=== PATIENT | female | born 1945 | race Caucasian/White ===

== ENCOUNTER 2024-01-19 12:51 | Outpatient (CLI) | payer OTHER, SELFPAY | END 2024-01-19 12:52 | disposition home or self-care (01) | LOC: AMB 01-25 06:47 | PROVIDERS: Visit Provider Emergency Medicine Emergency Medical Services | DX: R19.7 Diarrhea, unspecified (principal); R53.1 Weakness | CPT/HCPCS: A0425; A0427 ==

== ENCOUNTER 2024-01-19 13:15 | Inpatient (IN) | payer OTHER, SELFPAY ==
[2024-01-19] VITALS (8 sets, daily range): BP systolic 148–224; BP diastolic 92–120; PULSE 79–93; RESP 16–20; TEMP 36.4–36.9; O2SAT 93–99; BMI 28.3; BMI 27.1
--- NOTE | 2024-01-19 13:49 | ED_ITS ---
HPI - Weakness General Chief complaint: Weakness Stated complaint: Weakness Time Seen by Provider: 01/19/24 13:25 History of Present Illness HPI Narrative: This 78-year-old female comes in by ambulance because of generalized weakness that came on this morning. She has history of intermittent constipation and diarrhea and this has occurred recently. She did not have bowel movement for a couple days until last evening. Then this morning she had 6 or 7 episodes of diarrhea. She states that she drinks lots of water. She arrives here with normal vital signs except her blood pressure is elevated. She does not report any unilateral symptoms and has not had any speech change. She does report a history of a stroke that was a small finding on a MRI results. She does not have any significant residual symptoms from that event. She is not taking any anticoagulants. She does not have any pain and reports no fever or other sign of infection. She did need help ambulating and so she came in by ambulance. Ambulance report that she needed assistance to transfer. Normally she ambulates without assistance at home. Related Data Home Medications Medication Instructions Recorded Confirmed No Known Home Medications 01/19/24 01/19/24 Allergies Allergy/AdvReac Type Severity Reaction Status Date / Time chocolate Allergy Mild Diarrhea Verified 01/19/24 13:36 corn AdvReac Mild Diarrhea Verified 01/19/24 13:36 Review of Systems Status of ROS: Reports: 10 or more systems reviewed and unremarkable except as noted in History and below Narrative: Constitutional: No fevers, no weight gain or loss. Eyes: No discharge. No vision changes. HENT: No congestion, no sore throat, no ear pain. Cardiovascular: No chest pain, no palpitations. Respiratory: No shortness of breath, no wheezes, no cough. Gastrointestinal: No abdominal pain, no vomiting, no diarrhea. Genitourinary: No dysuria, no hematuria. Musculoskeletal: Normal range of motion. Skin: No rashes, no pruritis. Neurological: No dizziness, sensory change, speech change. Generalized weakness without unilateral symptoms. Endo/Heme/Allergies: No bruising or bleeding. No polydipsia. Pysch: no suicidality, no anxiety, no insomnia. All other systems reviewed and are negative. Exam Narrative: Exam Narrative: Constitutional: Well-developed, well-nourished, no acute distress. HEENT: Normocephalic, atraumatic. Neck: Normal range of motion. Nontender. Supple. Heart: Regular. No murmurs. Normal rate. Intact distal pulses. Lungs: Clear to auscultation. No chest discomfort. No wheezes, rhonchi, or rales. Abdomen: Normal bowel sounds. Nontender. No rebound tenderness. Genitalia: Deferred. Back: No midline tenderness. Normal range of motion. Extremities: Normal range of motion. No injury. Skin: Intact. No rash. Warm. No erythema or pallor. Neurologic: No altered sensation. No weakness. Alert and oriented. No facial asymmetry. Tongue is midline. [id number] is normal. No pronator drift. [employer] strength is equal bilaterally. Able to raise each leg from the bed. Psychiatric: No suicidality. No anxiety or depression. No insomnia. Nursing notes and vitals signs are reviewed. Const: Vital Signs, click to edit/add: Vital Signs - 24 hr 01/19/24 13:28 01/19/24 19:30 Temperature 98.5 F 97.9 F Pulse Rate [Pulse Oximeter] 93 91 Respiratory Rate 16 18 Blood Pressure [Ri t Upper Arm] 224/110 H 205/120 H Pulse Oximetry 98 94 Oxygen Delivery Me thod Room Air Room Air Course Vital Signs Vital signs: Initial Vital Signs Temperature 98.5 F 01/19/24 13:28 Temperature Source Temporal Artery Scan 01/19/24 13:28 Pulse Rate 93 01/19/24 13:28 Pulse Rhythm Regular 01/19/24 13:28 Respiratory Rate 16 01/19/24 13:28 Blood Pressure 224/110 H 01/19/24 13:28 Blood Pressure Mean 148 H 01/19/24 13:28 Blood Pressure Position Sitting 01/19/24 13:28 Pulse Oximetry 98 01/19/24 13:28 Oxygen Delivery Method Room Air 01/19/24 13:28 Vital Signs Temperature 98.5 F 01/19/24 13:28 Pulse Rate 93 01/19/24 13:28 Respiratory Rate 16 01/19/24 13:28 Blood Pressure 224/110 H 01/19/24 13:28 Pulse Oximetry 98 01/19/24 13:28 Oxygen Delivery Method Room Air 01/19/24 13:28 Temperature 97.9 F 01/19/24 19:30 Pulse Rate 91 01/19/24 19:30 Respiratory Rate 18 01/19/24 19:30 Blood Pressure 205/120 H 01/19/24 19:30 Pulse Oximetry 94 01/19/24 19:30 Oxygen Delivery Method Room Air 01/19/24 19:30 Medications Administered Medications: Discontinued Medications Generic Name Dose Route Start Last Admin Trade Name Elizabet PRN Reason Stop Dose Admin Aspirin 324 mg 01/19/24 19:19 01/19/24 19:24 Aspirin 81 Mg Tab.Chew PO 01/19/24 19:20 324 mg ONCE ONE Administration Clopidogrel Bisulfate 300 mg 01/19/24 19:19 01/19/24 19:34 Clopidogrel 300 Mg Tablet PO 01/19/24 19:20 300 mg ONCE ONE Administration Lorazepam 0.5 mg 01/19/24 17:16 01/19/24 17:21 Lorazepam 2 Mg/Ml Inj IV 01/19/24 17:17 0.5 mg ONCE ONE Administration Lorazepam 0.5 mg 01/19/24 18:58 01/19/24 19:26 Lorazepam 2 Mg/Ml Inj IV 01/19/24 18:59 0.5 mg ONCE ONE Administration MDM - Weakness MDM Narrative Medical decision making narrative: This patient comes in reporting generalized weakness but at times states that she feels like her left arm is functioning differently. Her neurologic exam is completely normal. She however was not able to get up and ambulate normally. I recommended MRI but the patient stated that she had 1 previously and it caused spasms in her hand for a few hours afterwards. She states that she did not want to have an MRI. Her symptoms started at 6:00 a.m. this morning which was about 7 hours prior to arrival here. I did consult with neurologist on-call, Dr. Alexandra, who recommended MRI. I explained the circumstances that the patient stated about MRI. The neurologist did do a tele stroke interview of the patient and afterwards she was agreeable to have an MRI done as this is the only way to establish a reliable diagnosis. She did begin to have some spasms in her hand prior to the MRI and received a half a mg of Ativan intravenously. Clearly this was an anxiety reaction. After the MRI was completed she continued to have some myoclonic jerks and did receive another dose of half a mg of Ativan. MRI results returned with evidence of a small infarct in the right brain causing some left-sided symptoms. IA spoke again with the neurologist international affairs vice president regarding this who recommended admission into the hospital. She will be followed by the neurologist tomorrow. The patient did receive a loading dose of Plavix 300 mg orally and aspirin 324 mg. The Plavix can be continued at 75 mg daily. She may need some attention to her blood pressure. I spoke with the hospitalist international affairs vice president, Dr. Manuel, regarding these matters who will arrange for admission ongoing management. Lab Data Labs: Lab Results 01/19/24 01/19/24 01/19/24 Range/Units 13:49 14:00 14:22 WBC 4.05 L (4.50-11.00) K/uL RBC 5.39 H (4.00-5.20) m/uL Hgb 14.5 (12.0-16.0) gm/dL Hct 43.7 (33.0-51.0) % MCV 81 (80-100) fL MCH 27 (26-34) pg MCHC 33 (32-36) gm/dL RDW Coeff of Mark 13.8 (11.5-15.5) % Plt Count 176 (140-440) K/uL Neut % (Auto) 62.0 (42.0-72.0) % Lymph % (Auto) 27.4 (20-44) % [place] % (Auto) 9.9 (0.0-11.0) % Eos % (Auto) 0.0 (0.0-7.0) % Baso % (Auto) 0.2 (0.0-3.0) % Neut # (Auto) 2.50 (1.7-7.0) K/uL Lymph # (Auto) 1.10 (0.90-2.90) K/uL [place] # (Auto) 0.40 (0.00-0.90) K/UL Eos # (Auto) 0.00 (0.00-0.50) K/uL Baso # (Auto) 0.00 (0.00-0.30) K/uL Abs Immat Gran (auto) 0.00 (0.00-0.30) K/uL Imm/Tot Granulo (auto) 0.5 % Sodium 142 (135-149) mmol/L Potassium 3.8 (3.6-5.1) mmol/L Chloride 109 (96-114) mmol/L Carbon Dioxide 25 (20-32) mmol/L Anion Gap 8 (7-15) mEq/L BUN 11 (7-30) mg/dL Creatinine 0.6 (0.5-1.5) mg/dL Estimated Creat Clear 34.42 Estimated GFR 91 ml/min Glucose 117 H (60-115) mg/dL Calcium 9.1 (8.4-10.6) mg/dL Urine Color Yellow (Yellow) Urine Appearance Clear (Clear) Urine pH 7.5 (5.0-8.5) Ur Specific [place] 1.020 (1.000-1.030) Urine Protein 1+ A (Negative) Urine Glucose (UA) Negative (Negative) Urine Ketones Negative (Negative) Urine Blood Negative (Negative) Urine Nitrite Negative (Negative) Urine Bilirubin Negative (Negative) Urine Urobilinogen 0.2 (0.2-1.0) Ur Leukocyte Esterase Negative (Negative) Urine RBC 0-2 (0-2) Urine WBC 0-2 (0-5) Ur Squamous Epith Cells None (None-Few) Urine Bacteria None (None) POC Troponin I 0.02 (0.01-0.04) ng/ml Imaging Data CT scan - abdomen: Radiologist's impression: Acute uncomplicated left lower quadrant diverticulitis. MRI - head: Radiologist's impression: MRI Head: 1. Small acute infarct involving the right powell radiata/posterior limb internal capsule. 2. No evidence of hemorrhagic transformation. 3. Mild-moderate chronic microangiopathic changes and small chronic lacunar infarcts at the left posterior limb internal capsule. MRA Head: 1. No convincing evidence of intracranial proximal arterial occlusion or critical stenosis, significant aneurysm or vascular malformation. MRA Neck: 1. No convincing evidence of hemodynamically significant stenosis in the neck, given motion artifact limitations. ECG Data Attestation: I personally reviewed and interpreted this ECG as follows: Interpretation: Normal sinus rhythm. Rate is 92 beats per minute. There are no ST or T-wave abnormalities. Discharge Plan Discharge Prescriptions: No Action No Known Home Medications
[2024-01-19 14:12] LABS: Appearance Urine Clear (Clear); Bilirubin Urine Negative (Negative); Blood Urine Negative (Negative); Color Urine Yellow (Yellow); Glucose Urine Negative (Negative); Ketones Urine Negative (Negative); Leukocyte Esterase Urine Negative (Negative); Nitrite Urine Negative (Negative); Protein Urine 1+ (Negative); Urobilinogen Urine 0.2 (0.2-1.0); pH Urine 7.5 (5.0-8.5)
[2024-01-19 14:24] LABS: RBC Urine 0-2 (0-2); WBC Urine 0-2 (0-5)
[2024-01-19 14:28] LABS: Basophils Percent Auto 0.2 % (0.0-3.0); Hematocrit 43.7 % (33.0-51.0); Hemoglobin* 14.5 gm/dL (12.0-16.0); Immature Granulocytes Pct Auto 0.5 %; Lymphocytes Percent Auto 27.4 % (20-44); Mean Corpuscular HGB Conc 33 gm/dL (32-36); Mean Corpuscular Hemoglobin 27 pg (26-34); Mean Corpuscular Volume 81 fL (80-100); Monocytes Percent Auto 9.9 % (0.0-11.0); Platelet Count* 176 K/uL (140-440); RDW Coefficient of Variation % 13.8 % (11.5-15.5); Red Blood Count 5.39 m/uL (4.00-5.20); White Blood Count* 4.05 K/uL (4.50-11.00)
[2024-01-19 14:30] LABS: Slide Review Reflex No
[2024-01-19 14:41] LABS: Chloride* 109 mmol/L (96-114); Potassium* 3.8 mmol/L (3.6-5.1); Sodium* 142 mmol/L (135-149)
[2024-01-19 14:44] LABS: Anion Gap 8 mEq/L (7-15); Blood Urea Nitrogen* 11 mg/dL (7-30); Carbon Dioxide* 25 mmol/L (20-32); Creatinine* 0.6 mg/dL (0.5-1.5); Est. Creatinine Clearance* 34.42; Estimated Glomerular Filt Rate 91 ml/min
[2024-01-19 14:44] LABS: Troponin, Point-of-Care* 0.02 ng/ml (0.01-0.04)
[2024-01-19 14:45] LABS: Calcium* 9.1 mg/dL (8.4-10.6); Glucose* 117 mg/dL (60-115)
--- NOTE | 2024-01-19 16:48 | MR_ITS ---
Patient: GELY COLEMAN Facility:?[facility] Patient ID:?[id number] Site Patient ID:?[id number] Site :?1945 Study:?MRI-Head W/ and W/O Cont 20 CC DOATERM-01/19/2024 6:36:07 PM Ordering Physician:INDIRA Final Report: Indication: Weakness Technique: MRI Head: performed before and after IV contrast. MRA Head: performed without IV contrast. MRA Neck: performed before and after IV contrast. Gadolinium-based contrast agent: 20 mL Dotarem IV contrast. Comparison: MRI brain 05/03/2021. Findings: MRI Head: Small area of acute ischemia at the right powell radiata extending into the posterior limb internal capsule. No evidence of hemorrhagic transformation. No midline shift, hydrocephalus or herniation. Mild-moderate chronic microangiopathy changes throughout the supratentorial white matter. Chronic lacunar infarcts at the posterior limb left internal capsule with associated wallerian degeneration signal changes. No suspicious intracranial enhancement. Major expected intracranial flow voids are preserved. No paranasal sinus air- fluid level or mastoid effusion. Bilateral lens implants. MRA Head: Artifact degrades image quality. The intracranial segments of the internal carotid arteries and basilar artery appear widely patent. The anterior, middle and posterior cerebral arteries and proximal branches are unremarkable. No evidence of an aneurysm over 3 mm. No high-flow AV malformation. No high-grade stenosis. MRA Neck: There is artifact from patient motion, degrading image quality. The bilateral common carotid arteries, internal and external carotid arteries appear widely patent. No stenosis near the common carotid bifurcations. Bilateral vertebral arteries also appear widely patent. Impression: MRI Head: 1. Small acute infarct involving the right powell radiata/posterior limb internal capsule. 2. No evidence of hemorrhagic transformation. 3. Mild-moderate chronic microangiopathic changes and small chronic lacunar infarcts at the left posterior limb internal capsule. MRA Head: 1. No convincing evidence of intracranial proximal arterial occlusion or critical stenosis, significant aneurysm or vascular malformation. MRA Neck: 1. No convincing evidence of hemodynamically significant stenosis in the neck, given motion artifact limitations. Dictated by Hanna Brock MD @ 01/19/2024 7:07:52 PM ----- ADDENDUM ----- Exam reports were faxed, with confirmation of receipt by Dr. Olivares at 19:41 on 01/19/2024. Dictated by Hanna Brock MD @ Jan 19 2024 9:35PM Signed by:?Hanna Brock MD @01/19/2024 7:07:52 PM (Electronic Signature)
--- NOTE | 2024-01-19 16:59 | MR_ITS ---
Patient: GELY COLEMAN Facility:?[facility] Patient ID:?[id number] Site Patient ID:?[id number] Site :?[id number] Study:?MRI-Head MRA W/O-01/19/2024 6:36:52 PM Ordering Physician:INDIRA Final Report: Indication: Weakness Technique: MRI Head: performed before and after IV contrast. MRA Head: performed without IV contrast. MRA Neck: performed before and after IV contrast. Gadolinium-based contrast agent: 20 mL Dotarem IV contrast. Comparison: MRI brain 05/03/2021. Findings: MRI Head: Small area of acute ischemia at the right powell radiata extending into the posterior limb internal capsule. No evidence of hemorrhagic transformation. No midline shift, hydrocephalus or herniation. Mild-moderate chronic microangiopathy changes throughout the supratentorial white matter. Chronic lacunar infarcts at the posterior limb left internal capsule with associated wallerian degeneration signal changes. No suspicious intracranial enhancement. Major expected intracranial flow voids are preserved. No paranasal sinus air- fluid level or mastoid effusion. Bilateral lens implants. MRA Head: Artifact degrades image quality. The intracranial segments of the internal carotid arteries and basilar artery appear widely patent. The anterior, middle and posterior cerebral arteries and proximal branches are unremarkable. No evidence of an aneurysm over 3 mm. No high-flow AV malformation. No high-grade stenosis. MRA Neck: There is artifact from patient motion, degrading image quality. The bilateral common carotid arteries, internal and external carotid arteries appear widely patent. No stenosis near the common carotid bifurcations. Bilateral vertebral arteries also appear widely patent. Impression: MRI Head: 1. Small acute infarct involving the right powell radiata/posterior limb internal capsule. 2. No evidence of hemorrhagic transformation. 3. Mild-moderate chronic microangiopathic changes and small chronic lacunar infarcts at the left posterior limb internal capsule. MRA Head: 1. No convincing evidence of intracranial proximal arterial occlusion or critical stenosis, significant aneurysm or vascular malformation. MRA Neck: 1. No convincing evidence of hemodynamically significant stenosis in the neck, given motion artifact limitations. Dictated by Hanna Brock MD @ 01/19/2024 7:08:15 PM Signed by:?Hanna Brock MD @01/19/2024 7:08:15 PM (Electronic Signature)
--- NOTE | 2024-01-19 16:59 | MR_ITS ---
Patient: GELY COLEMAN Facility:?[facility] Patient ID:?[id number] Site Patient ID:?[id number] Site :?1945 Study:?MRI-Neck Angio W/ and W/O Cont 20 CC DOATERM-01/19/2024 6:37:37 PM Ordering Physician:INDIRA Final Report: Indication: Weakness Technique: MRI Head: performed before and after IV contrast. MRA Head: performed without IV contrast. MRA Neck: performed before and after IV contrast. Gadolinium-based contrast agent: 20 mL Dotarem IV contrast. Comparison: MRI brain 05/03/2021. Findings: MRI Head: Small area of acute ischemia at the right powell radiata extending into the posterior limb internal capsule. No evidence of hemorrhagic transformation. No midline shift, hydrocephalus or herniation. Mild-moderate chronic microangiopathy changes throughout the supratentorial white matter. Chronic lacunar infarcts at the posterior limb left internal capsule with associated wallerian degeneration signal changes. No suspicious intracranial enhancement. Major expected intracranial flow voids are preserved. No paranasal sinus air- fluid level or mastoid effusion. Bilateral lens implants. MRA Head: Artifact degrades image quality. The intracranial segments of the internal carotid arteries and basilar artery appear widely patent. The anterior, middle and posterior cerebral arteries and proximal branches are unremarkable. No evidence of an aneurysm over 3 mm. No high-flow AV malformation. No high-grade stenosis. MRA Neck: There is artifact from patient motion, degrading image quality. The bilateral common carotid arteries, internal and external carotid arteries appear widely patent. No stenosis near the common carotid bifurcations. Bilateral vertebral arteries also appear widely patent. Impression: MRI Head: 1. Small acute infarct involving the right powell radiata/posterior limb internal capsule. 2. No evidence of hemorrhagic transformation. 3. Mild-moderate chronic microangiopathic changes and small chronic lacunar infarcts at the left posterior limb internal capsule. MRA Head: 1. No convincing evidence of intracranial proximal arterial occlusion or critical stenosis, significant aneurysm or vascular malformation. MRA Neck: 1. No convincing evidence of hemodynamically significant stenosis in the neck, given motion artifact limitations. Dictated by Hanna Brock MD @ 01/19/2024 7:08:40 PM Signed by:?Hanna Brock MD @01/19/2024 7:08:40 PM (Electronic Signature)
[2024-01-19] MEDS: LORazepam 2 MG/ML inj 0.5 MG IV ×2 (17:21→19:26)
--- NOTE | 2024-01-19 17:21 | ED.NURSE ---
pt anxious. ativan given as ordered
[2024-01-19] MEDS: ASPIRIN 81 MG TAB.CHEW 324 MG PO (19:24)
[2024-01-19] MEDS: CLOPIDOGREL 300 MG TABLET PO (19:34)
[2024-01-19 20:03] LABS: Cholesterol* 259 mg/dL (90-199); HDL Cholesterol* 79 mg/dL (>=50); LDL Cholesterol Calculated 163 mg/dL (<100); Triglycerides* 83 mg/dL (40-149)
[2024-01-19 20:05] LABS: Hemoglobin A1C* 5.7 % (0-5.6)
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
[2024-01-19] MEDS: ENOXAPARIN 30 MG/0.3ML INJ SUBCUT (22:17)
[2024-01-19] MEDS: LORazepam 0.5 MG TABLET PO (22:17)
[2024-01-19] MEDS: SODIUM CHLORIDE 0.9 % (FLUSH) 10 ML SYRINGE 5 ML IVF (22:17)
[2024-01-20] VITALS (8 sets, daily range): BP systolic 150–224; BP diastolic 95–120; PULSE 71–105; RESP 16–81; TEMP 36.6–37.6; O2SAT 92–98
[2024-01-20] MEDS: ACETAMINOPHEN 325 MG TABLET 650 MG PO (00:52)
[2024-01-20] MEDS: MELATONIN 3 MG TABLET PO (00:52)
--- NOTE | 2024-01-20 02:12 | PC.NURSE ---
This commercial insurance underwriter accessed pt's intervention list in order to document output as this commercial insurance underwriter and charge auditor assisted pt to commode.
[2024-01-20 06:15] LABS: Basophils Absolute Auto 0.01 K/uL (0.00-0.30); Basophils Percent Auto 0.2 % (0.0-3.0); Hematocrit 42.1 % (33.0-51.0); Hemoglobin* 14.3 gm/dL (12.0-16.0); Immature Granulocytes Abs Auto 0.02 K/uL (0.00-0.30); Immature Granulocytes Pct Auto 0.4 %; Lymphocytes Absolute Auto 1.63 K/uL (0.90-2.90); Lymphocytes Percent Auto 30.6 % (20-44); Mean Corpuscular HGB Conc 34 gm/dL (32-36); Mean Corpuscular Hemoglobin 27 pg (26-34); Mean Corpuscular Volume 80 fL (80-100); Neutrophils Percent Auto 50.8 % (42.0-72.0); Platelet Count* 186 K/uL (140-440); RDW Coefficient of Variation % 13.9 % (11.5-15.5); Red Blood Count 5.28 m/uL (4.00-5.20); White Blood Count* 5.32 K/uL (4.50-11.00)
[2024-01-20 06:19] LABS: Slide Review Reflex No
[2024-01-20 06:34] LABS: Chloride* 104 mmol/L (96-114); Potassium* 3.2 mmol/L (3.6-5.1); Sodium* 137 mmol/L (135-149)
[2024-01-20 06:37] LABS: Anion Gap 10 mEq/L (7-15); Blood Urea Nitrogen* 12 mg/dL (7-30); Carbon Dioxide* 23 mmol/L (20-32); Creatinine* 0.7 mg/dL (0.5-1.5); Est. Creatinine Clearance* 36.08; Estimated Glomerular Filt Rate 88 ml/min
[2024-01-20 06:38] LABS: Calcium* 8.8 mg/dL (8.4-10.6); Glucose* 116 mg/dL (60-115)
[2024-01-20 06:40] LABS: C Reactive Protein* 0.9 mg/dL (0.5-1.0)
--- NOTE | 2024-01-20 06:56 | PC.NURSE ---
End of shift ? Pt arrived from ED at approximately 1999. Pt alert, oriented, cooperative, family present at bedside. Pt reported weakness in L arm and L leg. RN observed L leg to be severely weak, with pt unable to wiggle toes or control L leg/foot movement. RN observed L arm/hand to be flaccid, pt able to lightly squeeze RN?s fingers on command. Pt continent of bowel and bladder, able to stand and pivot to bedside commode with 2 staff assist. Tolerating RA, regular diet, fluids. Pt reported feeling ?zapping? and ?electric? feeling in L arm and L leg while trying to sleep. RN observed L side extremities to demonstrate intermittent spastic movements. Pt expressed feeling distressed at this uncontrolled movement, RN provided emotional support and repositioning to provide relief. notified, medication given per NOV. Pt observed to sleep during shift. ?
[2024-01-20] MEDS: CLOPIDOGREL 75 MG TABLET PO (09:31)
[2024-01-20] MEDS: ASPIRIN 81 MG TAB.CHEW PO (09:31)
[2024-01-20] MEDS: ENOXAPARIN 30 MG/0.3ML INJ SUBCUT ×2 (09:31→21:21)
[2024-01-20] MEDS: SODIUM CHLORIDE 0.9 % (FLUSH) 10 ML SYRINGE 5 ML IVF (09:32)
[2024-01-20] MEDS: POTASSIUM CHLORIDE 10 MEQ CAPSULE ER 40 MEQ PO (10:47)
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
--- NOTE | 2024-01-20 18:12 | PC.NURSE ---
End of Shift: Pt calm, cooperative, and pleasant. Pt hypertensive but vitally stable, lung sounds clear, BS active, NO IV. Tele=NSR. Pt denies pain, but reports pain from left arm spasms. Spasms occur on and off throughout the day. Pt sat in chair for all meals, tolerated regular diet. Pt 2 assist pivot to commode, bed, and chair. Pt neuros intact besides severe left arm and leg weakness and flaccidity.
[2024-01-20] MEDS: ROSUVASTATIN CALCIUM 10 MG TABLET 40 MG PO (21:21)
[2024-01-21] VITALS (10 sets, daily range): BP systolic 164–210; BP diastolic 84–112; PULSE 66–90; RESP 16–20; TEMP 36.5–36.9; O2SAT 93–96
--- NOTE | 2024-01-21 04:54 | PC.NURSE ---
Shift note: Pt continue to have left sided weakness (flaccid). Adequate cognitive function. Alert and oriented. Pelvic transfer with A2 to bedside commode. Bp has been consistently high throughout the shift, MD aware. New IV inserted. Pt had adequate sleep.
[2024-01-21 06:29] LABS: Chloride* 106 mmol/L (96-114); Potassium* 3.6 mmol/L (3.6-5.1); Sodium* 138 mmol/L (135-149)
[2024-01-21 06:32] LABS: Anion Gap 11 mEq/L (7-15); Blood Urea Nitrogen* 14 mg/dL (7-30); Carbon Dioxide* 21 mmol/L (20-32); Creatinine* 0.8 mg/dL (0.5-1.5); Est. Creatinine Clearance* 36.08; Estimated Glomerular Filt Rate 75 ml/min; Glucose* 101 mg/dL (60-115)
[2024-01-21 06:33] LABS: Calcium* 8.7 mg/dL (8.4-10.6)
[2024-01-21] MEDS: CLOPIDOGREL 75 MG TABLET PO (09:23)
[2024-01-21] MEDS: SODIUM CHLORIDE 0.9 % (FLUSH) 10 ML SYRINGE 5 ML IVF ×2 (09:23→20:37)
[2024-01-21] MEDS: ENOXAPARIN 30 MG/0.3ML INJ SUBCUT ×2 (09:23→20:36)
[2024-01-21] MEDS: ASPIRIN 81 MG TAB.CHEW PO (09:23)
[2024-01-21] MEDS: lisinopriL 10 MG TABLET PO (09:23)
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
[2024-01-21] MEDS: LORazepam 0.5 MG TABLET PO (17:54)
--- NOTE | 2024-01-21 18:35 | PC.NURSE ---
End of Shift Nursing Note (): Patient A&OX3 during shift; patient continues to have significant L) sided weakness and flaccidity in the L) upper extremity. 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 Patient able to lift L) hand up in the air but is very weak. Patient mobilizes via pivot with Ax2. Patient has not had a BM since Monday and would like bowel medications tomorrow if no BM by then. Patient can be anxious. PRN Ativan given for spasticity in LLE. Patient tolerated medication well. Patient denies pain or discomfort. present at bedside for majority of shift. Blood pressure continues to be elevated; MD aware and Lisinopril initiated. All other vitals WNL. Patient worked with PT/OT today. Patient will likely need to DC to SNF; discharge plan still pending. Will continue to implement ongoing plan of care.
[2024-01-21] MEDS: ACETAMINOPHEN 325 MG TABLET 650 MG PO (19:37)
[2024-01-21] MEDS: ROSUVASTATIN CALCIUM 10 MG TABLET 40 MG PO (21:17)
--- NOTE | 2024-01-21 23:45 | PC.NURSE ---
When performing neuro assessment and singer songwriter asked about possible symptoms pt has been experiencing, pt stated, I'm still having that numbness to the left side of my mouth. Pt reported this is not a new symptom and she has had this ongoing since stroke. Business Analyst Manager did update MD Manuel of pt's report of mouth numbness. No new orders given. CASEY.
[2024-01-22] VITALS (11 sets, daily range): BP systolic 180–196; BP diastolic 88–98; PULSE 65–89; RESP 16–20; TEMP 35.6–36.9; O2SAT 93–96
[2024-01-22] MEDS: SENNOSIDES/DOCUSATE TABLET 1 TAB PO (00:03)
[2024-01-22] MEDS: ACETAMINOPHEN 325 MG TABLET 650 MG PO ×2 (04:14→17:33)
--- NOTE | 2024-01-22 06:45 | PC.NURSE ---
End of shift note [id number]: Pt noted to be alert & oriented x 4 and able to make needs known. She transfers with pivot assist of 2 using GB and has been toileting with bedside commode. Pt cannot safely ambulate at this time due to L sided weakness. B/P continues to trend high though MD Manuel aware as permissive HTN allowed. Pt has been afebrile throughout the shift and denies cough when asked. IV to R wrist patent and SL. Pt has denied pain throughout the shift though was given PRN Tylenol last evening due to c/o spasms in L arm and this morning due to c/o what she states is chronic L abdominal pain that ?has come and gone for years?. Pt has been continent of bladder throughout the shift and was given PRN Senna-S to promote BM with last BM date of 01/19/24. CASEY. Pt has been compliant with wearing bilateral JENNIFER stockings though has refused plexi pulses for part of the shift despite education provided.
[2024-01-22] MEDS: ASPIRIN 81 MG TAB.CHEW PO (08:47)
[2024-01-22] MEDS: AMLODIPINE 5 MG TABLET PO (08:47)
[2024-01-22] MEDS: ENOXAPARIN 30 MG/0.3ML INJ SUBCUT ×2 (08:47→21:16)
[2024-01-22] MEDS: CLOPIDOGREL 75 MG TABLET PO (08:47)
[2024-01-22] MEDS: lisinopriL 10 MG TABLET PO (08:47)
[2024-01-22] MEDS: SODIUM CHLORIDE 0.9 % (FLUSH) 10 ML SYRINGE 5 ML IVF ×2 (08:48→21:17)
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
--- NOTE | 2024-01-22 11:22 | NUTR.NU ---
RDN with diet education related to 2 gm sodium diet. Patient admitted for Ischemic stroke. Past medical history includes mixed hyperlipidemia and Hypertension. Current weight 142 lb; height 5ft 2in; BMI 26.1 kg/m2. Current diet is 2 gm sodium. Meal intakes averaging about 50%. RDN visited with patient whom reports not following a specific diet at home, however she is allergic to chocolate and corn. RDN offered diet education related to a heart healthy diet, however patient declined at this time. Patient did accept diet educational materials and reported she will review with her (Sebas, designated caregiver) at a later date. RDN's contact information provided and encouraged patient to call with questions. RDN to follow up as needed.
--- NOTE | 2024-01-22 13:43 | PC.SOCIAL ---
Discharge planning- Per therapy, pt will need SNF for rehab. Pt has [employer] insurance. Met with pt and discussed recommendation and options for SNF that are covered by [employer] insurance. Pt would like a facility near [place]. Contacted the following SNF's for possible placement. 1. [facility]- E-mail to admissions to inquire on open bed. There will be an opening this week. Secure e-mailed referral to [facility] admissions for review. [facility]. [facility]- Faxed referral to admissions at [phone] for review. 3. [facility]- Faxed referral to admissions at [phone] for review. Social work will continue to follow up on faxed referrals.
[2024-01-22] MEDS: BACLOFEN 10 MG TABLET 5 MG PO (19:18)
--- NOTE | 2024-01-22 19:41 | PC.NURSE ---
End of shift [id number] - Pt alert, oriented, cooperative. Pt reports feeling fatigued and reported difficulty sleeping due to spastic muscle movements of L arm and L leg over night. Pt up to bedside commode with 2 assist, gait belt, stand and pivot. Continent of bowel and bladder during shift, excluding one instance of a sudden loose BM in pt brief. Pt denies SOB, nausea, vomiting. Tolerating RA, regular diet, fluids. Family at bedside. Pt appears to be resting comfortably at the end of shift.
[2024-01-22] MEDS: ROSUVASTATIN CALCIUM 10 MG TABLET 40 MG PO (21:16)
[2024-01-22] MEDS: LORazepam 0.5 MG TABLET PO (21:45)
[2024-01-23] VITALS (7 sets, daily range): BP systolic 160–192; BP diastolic 90–96; PULSE 65–83; RESP 16–18; TEMP 36.1–36.7; O2SAT 94–97
--- NOTE | 2024-01-23 06:35 | PC.NURSE ---
Addendum entered by Sandy Carcamo RN 01/23/24 07:43: Correction: IV in place to R wrist, not R hand as previously documented. Original Note: End of shift note [id number]: Pt remains alert & oriented x 4 and able to make needs known. She continues to transfer with assist of 2 and gait belt by pivot transferring. Pt unable to safely ambulate at this time. B/Ps continue to remain elevated though pt has recently started on Amlodipine after previously starting on Lisinopril. Pt has been refusing TEDs most of the shift despite education provided and has refused plexi pulses for part of the shift as well despite education. Pt continues to use bedside commode for toileting. She is noted to have bruising and hematoma to R arm because of having to use this arm for ADLs.?Pt has been denying pain when asked though was given PRN Baclofen and PRN Ativan throughout the shift to treat c/o muscle spasms primarily in L arm. Pt has been up to commode several times throughout the shift though denies urinary symptoms such as burning or pain with urination when asked. IV to R hand remains patent and SL.
[2024-01-23] MEDS: lisinopriL 10 MG TABLET PO (09:44)
[2024-01-23] MEDS: AMLODIPINE 5 MG TABLET PO (09:44)
[2024-01-23] MEDS: ASPIRIN 81 MG TAB.CHEW PO (09:44)
[2024-01-23] MEDS: CLOPIDOGREL 75 MG TABLET PO (09:45)
[2024-01-23] MEDS: ENOXAPARIN 30 MG/0.3ML INJ SUBCUT ×2 (09:45→20:38)
[2024-01-23] MEDS: SODIUM CHLORIDE 0.9 % (FLUSH) 10 ML SYRINGE 5 ML IVF ×2 (09:45→20:39)
--- NOTE | 2024-01-23 11:19 | PC.SOCIAL ---
Addendum entered by TALITA Capellan 01/23/24 15:15: Nursing will secure e-mail discharge orders to Alex at [facility] admissions at [email or web address] early tomorrow morning. Addendum entered by TALITA Capellan 01/23/24 15:14: Received a phone call from Alex in admissions at [facility]. Alex informs that the prior authorization was approved. Pt can admit tomorrow morning. [facility] would like pt to come to their facility early, if possible. Provided update to charge nurse. Charge nurse set EMS transport for 9:00 am. Phone call to pt's Sebas and provided update. Completed preadmission screening. Confirmation #[id number]. E-mail to Alex in admissions to provide update on discharge time and provide copy of PAS. Original Note: Discharge planning- Pt was accepted for admission to [facility] for Monday (01/24/2024). Pt has [employer] insurance so prior authorization is needed. Discussed with pt and pt's Sebas. They would like to accept the bed. Pt [facility] requesting [facility] [facility]. This worker informed that [facility] [facility] does not go outside of [place] (confirmed via phone call). Provided information on non-emergency ambulance and the fee associated with transportation. Pt's agrees verbally to pay fee (Approx. $160). Completed non-emergency ambulance form with consent to pay fee. Provided update to Alex in admissions at [facility]. Alex has submitted the request for prior authorization and will keep this worker updated on approval. Will continue to keep pt and pt's updated on discharge plans.
[2024-01-23] MEDS: BACLOFEN 10 MG TABLET PO ×2 (11:42→20:20)
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
--- NOTE | 2024-01-23 18:30 | PC.NURSE ---
Shift Summary 15-19: Patient pleasant and cooperative. Vitals stable. Up with two assist, gait belt pivot to BSC. Tolerating regular diet. Repositioned as patient requests.
[2024-01-23] MEDS: ROSUVASTATIN CALCIUM 10 MG TABLET 40 MG PO (20:21)
[2024-01-23] MEDS: MELATONIN 3 MG TABLET PO (22:12)
[2024-01-24 03:00] VITALS: BP 194/98; PULSE 80; RESP 18; TEMP 36.1; O2SAT 96
[2024-01-24] MEDS: BACLOFEN 10 MG TABLET PO (03:48)
--- NOTE | 2024-01-24 06:30 | PC.NURSE ---
End of shift note [id number]: Pt remains alert & oriented x 4 and able to make needs known. Pt believed it was Monday last evening when asked though told technical publications writer, ?I only thought it was Monday because that?s what my told me?. CASEY. She continues to require extensive assist of 2 with pivot transferring using gait belt. Pt unable to ambulate at this time. Pt has denied pain throughout the shift though was given 2 doses of PRN Baclofen throughout the shift to treat spasms in L arm and L leg. Blood pressures continue to trend high though pt currently taking Lisinopril and Amlodipine to treat HTN. She has been afebrile throughout the shift and remains continent of bladder using bedside commode. IV to R wrist remains patent and SL. Pt frequently used call light throughout the shift and was toileted several times, pt voiding approximately 50-200 cc each toileting episode. Pt remains on telemetry with NSR with BBB noted. Pt did have bilateral JENNIFER stockings on for part of the shift though has refused for JENNIFER stockings to be put back on when approached and educated. She also refused bilateral plexi pulses for part of the shift. ?
[2024-01-24 07:20] LABS: Chloride* 105 mmol/L (96-114)
[2024-01-24 07:21] LABS: Potassium* 3.5 mmol/L (3.6-5.1); Sodium* 140 mmol/L (135-149)
[2024-01-24 07:23] LABS: Creatinine* 0.7 mg/dL (0.5-1.5); Est. Creatinine Clearance* 36.08; Estimated Glomerular Filt Rate 88 ml/min
[2024-01-24 07:24] LABS: Anion Gap 10 mEq/L (7-15); Blood Urea Nitrogen* 15 mg/dL (7-30); Calcium* 9.2 mg/dL (8.4-10.6); Carbon Dioxide* 25 mmol/L (20-32); Glucose* 117 mg/dL (60-115)
[2024-01-24 07:40] VITALS: PULSE 71
[2024-01-24 07:45] VITALS: BP 202/108; PULSE 73; RESP 18; TEMP 36.5; O2SAT 94
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
[2024-01-24] MEDS: ASPIRIN 81 MG TAB.CHEW PO (08:16)
[2024-01-24] MEDS: lisinopriL 10 MG TABLET PO (08:16)
[2024-01-24] MEDS: ENOXAPARIN 30 MG/0.3ML INJ SUBCUT (08:17)
[2024-01-24] MEDS: AMLODIPINE 5 MG TABLET PO ×2 (08:17)
[2024-01-24] MEDS: CLOPIDOGREL 75 MG TABLET PO (08:17)
[2024-01-24] MEDS: SPIRONOLACTONE 25 MG TABLET PO (08:19)
--- NOTE | 2024-01-24 09:06 | PC.NURSE ---
Patient DC'd via EMS today to [facility] in [place] for ongoing rehab post-CVA. Patient AX2 at [facility] for ambulation/toileting. IV removed prior to DC. Nurse to nurse report given to RN at [facility]. Patient stable at DC from facility.
== END 2024-01-24 08:45 | DRG 65 ==
LOC: ED 17:37 → MEDSURG 21:27
PROVIDERS: Family Medicine; Admitting Provider Family Medicine; Emergency Provider Emergency Medicine Emergency Medical Services; Visit Provider Family Medicine
DX: I63.9 Cerebral infarction, unspecified (principal); G81.04 Flaccid hemiplegia affecting left nondominant side; R29.810 Facial weakness; I10 Essential (primary) hypertension; I67.82 Cerebral ischemia; Z91.148 Patient's other noncompliance with medication regimen for other reason; M62.838 Other muscle spasm; Z86.73 Personal history of transient ischemic attack (TIA), and cerebral infarction without residual deficits; I73.9 Peripheral vascular disease, unspecified; E78.2 Mixed hyperlipidemia
CPT/HCPCS: 36415; 70544; 70549; 70553; 80048; 80061; 81001; 81003; 82088; 83036; 84244; 84443; 84484; 85025; 86140; 92610; 93306; 94761; 97110; 97112; 97116; 97162; 97165; 97530; 97535; 99284; 99285; A9270; A9575; J1650; J2060

== ENCOUNTER 2024-01-24 08:40 | Outpatient (CLI) | payer OTHER, SELFPAY | END 2024-01-24 08:41 | disposition home or self-care (01) | LOC: AMB 01-29 18:00 | PROVIDERS: Visit Provider Family Medicine | DX: I63.9 Cerebral infarction, unspecified (principal); Z99.3 Dependence on wheelchair | CPT/HCPCS: A0425; A0428 ==

== ENCOUNTER 2024-02-20 16:45 | Inpatient (IN) | payer OTHER, SELFPAY ==
[2024-02-20] VITALS (14 sets, daily range): BP systolic 142–149; BP diastolic 72–83; PULSE 94–110; RESP 16–18; TEMP 36.9–37.3; O2SAT 93–95; BMI 24.1; BMI 26.3
--- NOTE | 2024-02-20 16:53 | CRLHL7_ITS ---
For Patients: As a result of the 21st Century Cures Act, medical imaging exams and procedure reports are released immediately into your electronic medical record. You may view this report before your referring provider. If you have questions, please contact your health care provider. Indication: Right lower quadrant pain and muscle spasms Technique: CT abdomen and pelvis with Intravenous contrast, dose and type not provided. An addendum to this dictation may be completed if this information is provided. Please note that all CT scans at this facility use dose modulation, iterative reconstruction, and/or weight-based dosing when appropriate to reduce radiation dose to as low as reasonably achievable. Comparison: None. Findings : Bibasilar atelectasis versus scarring present. Partially visualized coronary artery atherosclerotic calcifications are identified. There is a 12 millimeter left breast retroareolar asymmetric soft tissue density. Borderline thickened gallbladder hunt measure up to 4 millimeters and there is associated adjacent mesenteric stranding. The liver, spleen, adrenal glands, and pancreas are unremarkable. Vascular calcifications are noted within the kidneys which are symmetric in size and without stones or hydronephrosis. Urinary bladder is grossly unremarkable. Uterus is surgically absent. The hollow viscera without obstruction, focal bowel wall thickening or adjacent inflammatory stranding. The appendix is normal. There is no free air or ascites. Borderline enlarged right mid to lower mesenteric node measures 10 millimeters in the short axis, no other lymphadenopathy by size criteria. Moderate abdominal aortic atherosclerotic calcifications are demonstrated including narrowing at the origin of the right renal artery. Remainder of the abdominal aorta and its major branches are patent and normal in caliber. Soft tissues are otherwise unremarkable. Bones are intact and age-appropriate. L3 hemangioma is identified. Impression: 1. 12 millimeter asymmetric soft tissue density within the left retroareolar breast is nonspecific, with differential diagnosis to include malignancy. Recommend correlation with physical examination and updated mammogram. 2. 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 Recommend routine outpatient CT angiogram of the abdomen to adequately characterize. 3. Borderline thickened gallbladder hunt with adjacent inflammatory stranding may be seen with cholecystitis. Recommend correlation with physical examination and labs. Right upper quadrant ultrasound would further characterize. Please note that all CT scans at this facility use dose modulation, iterative reconstruction, and/or weight-based dosing when appropriate to reduce radiation dose to as low as reasonably achievable. Dictated by Bruce Fu MD @ 02/20/2024 6:18:39 PM (Electronically Signed)
[2024-02-20 17:10] LABS: Lactate* 0.7 mmol/L (0.5-1.9)
[2024-02-20 17:12] LABS: Eosinophils Percent Auto 0.1 % (0.0-7.0); Hematocrit 36.7 % (33.0-51.0); Hemoglobin* 12.8 gm/dL (12.0-16.0); Lymphocytes Percent Auto 11.5 % (20-44); Mean Corpuscular HGB Conc 35 gm/dL (32-36); Mean Corpuscular Hemoglobin 28 pg (26-34); Mean Corpuscular Volume 79 fL (80-100); Monocytes Percent Auto 18.3 % (0.0-11.0); Neutrophils Percent Auto 69.2 % (42.0-72.0); Platelet Count* 239 K/uL (140-440); RDW Coefficient of Variation % 13.7 % (11.5-15.5); Red Blood Count 4.66 m/uL (4.00-5.20); White Blood Count* 9.16 K/uL (4.50-11.00)
[2024-02-20 17:13] LABS: Eosinophils Absolute Auto 0.01 K/uL (0.00-0.50); Immature Granulocytes Abs Auto 0.08 K/uL (0.00-0.30); Immature Granulocytes Pct Auto 0.9 %; Neutrophils Absolute Auto 6.34 K/uL (1.7-7.0)
[2024-02-20 17:20] LABS: Slide Review Reflex No
--- NOTE | 2024-02-20 17:45 | ED_ITS ---
HPI - General Adult General Chief complaint: Abdominal Pain Stated complaint: Abdominal pain Time Seen by Provider: 02/20/24 16:53 Source: patient and EMS Mode of arrival: EMS Limitations: no limitations History of Present Illness HPI narrative: 78-year-old female coming in today complaining of abdominal pain. Patient's of the pain started yesterday located in the right side of the abdomen. The pain comes and goes, nothing makes it better or worse. She states that she has not been able to eat today. States that she had a large episode of diarrhea in the morning. She denies any urinary symptoms such as frequency, dysuria or urgency. She denies headache blurry vision. She is not short of breath. She denies any chest pain. 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 She was discharged to a tertiary care center in December on aspirin, Plavix, statin, amlodipine, lisinopril, spironolactone. Patient states that she is taking all her medications as prescribed. She states that she continues to require assistance with moving, is using a walker still. Lastly, she is on baclofen for muscle spasms which she does continue to have specially of the left side. Related Data Home Medications ?Medication ?Instructions ?Recorded ?Confirmed cyclobenzaprine 5 mg tablet mg PO 02/20/24 oxycodone 5 mg tablet 5 mg PO Q4H PRN pain 02/20/24 02/20/24 Previous Rx's ?Medication ?Instructions ?Recorded amlodipine 5 mg tablet 5 mg PO DAILY #30 tabs 01/23/24 aspirin 81 mg chewable tablet 81 mg PO DAILY #100 tabs 01/23/24 ([facility] Asp[facility]in) baclofen 10 mg tablet 5 - 10 mg (0.5 - 1 x 10 mg) PO TID 01/23/24 PRN Muscle Spasm #30 tabs clopidogrel 75 mg tablet 75 mg PO DAILY #20 tabs 01/23/24 lisinopril 10 mg tablet 10 mg PO DAILY #30 tabs 01/23/24 rosuvastatin 40 mg tablet 40 mg PO DAILY #30 tabs 01/23/24 spironolactone 25 mg tablet 25 mg PO DAILY #30 tabs 01/24/24 Allergies Allergy/AdvReac Type Severity Reaction Status Date / Time chocolate Allergy Mild Diarrhea Verified 02/20/24 16:53 corn AdvReac Mild Diarrhea Verified 02/20/24 16:53 Review of Systems Status of ROS: Reports: 10 or more systems reviewed and unremarkable except as noted in History and below [facility] Medical History Muscle spasm ?M62.838 - Other muscle spasm (ICD-10) Noncompliance with medication regimen ?Z91.148 - Patient's other noncompliance with medication regimen for other reason (ICD-10) Colon cancer screening declined ?Z53.20 - Procedure and treatment not carried out because of patient's decision for unspecified reasons (ICD-10) Cervical cancer screening declined ?Z53.20 - Procedure and treatment not carried out because of patient's decision for unspecified reasons (ICD-10) Vaccination declined ?Z28.21 - Immunization not carried out because of patient refusal (ICD-10) Hypertension ?I10 - Essential (primary) hypertension (ICD-10) Fractured coccyx ?S32.2XXA - Fracture of coccyx, initial encounter for closed fracture (ICD- 10) Rib fractures ?S22.49XA - Multiple fractures of ribs, unspecified side, initial encounter for closed fracture (ICD-10) Electrocution ?T75.4XXA - Electrocution, initial encounter (ICD-10) Mixed hyperlipidemia ?E78.2 - Mixed hyperlipidemia (ICD-10) Ischemic stroke ?I63.9 - Cerebral infarction, unspecified (ICD-10) Benign ovarian tumor ?D27.9 - Benign neoplasm of unspecified ovary (ICD-10) Hypothyroidism ?E03.9 - Hypothyroidism, unspecified (ICD-10) Surgical History H/O bilateral oophorectomy (~1988) ?Z90.722 - Acquired absence of ovaries, bilateral (ICD-10) H/O hysterectomy for benign disease (~1976) ?Z90.710 - Acquired absence of both cervix and uterus (ICD-10) Hx of tonsillectomy ?Z90.89 - Acquired absence of other organs (ICD-10) Family History Brother Alcohol dependence Drug dependence Brother Diabetes Father Myocardial infarction High blood pressure Paternal Grandfather Myocardial infarction Mother High blood pressure Sister High blood pressure Maternal Grandmother Leukemia Social History Narrative: , lives independently with , Fabricio. 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 She has a sister and several adult children who live in the area. Denies tobacco use, quit smoking at age 30. Drinks 1 glass of wine 5 nights a week, no other alcohol use. Denies recreational drug use. Patient desires to be DNR/DNI. What is your current living situation?: I presently have a place to live Problems where you live: no known problems Problems where you live details: N/A In the past 12 months, utilities in danger of being shut off: no In past 12 months, lack of transportation kept you from medical appts, meetings, work, or getting things needed for daily living: no In the past 12 mos, have been you worried that your food would run out before you had money to buy more?: never true In the past 12 mos, the food you bought just didn't last and you didn't have money to buy more?: never true Smoking Status: Former smoker What tobacco products do you use: cigarettes Smoking quit date/years: >15 years ago Do you use any of these nicotine containing products: None Second hand tobacco smoke exposure: No How often do you have a drink containing alcohol: 4 or more times a week Alcohol type: beer and wine Alcohol type details: 1 beer/wine 5x/week with meals How many standard drinks containing alcohol do you have on a typical day: 1 or 2 How often do you have six or more drinks on one occasion: Never AUDIT-C Alcohol total score: 4 Non-prescribed substance use: denies use Caffeine: Yes (2-3 cups of coffee/day) How often does anyone, including family, friends and others, physically hurt you : never How often does anyone, including family, friends and others, insult or talk down to you: never How often does anyone, including family, friends and others, threaten you with harm: never How often does anyone, including family, friends and others, scream or curse at you: never Exam Narrative: Exam Narrative: Well-nourished well-developed patient in no acute distress. Alert and oriented. Answers questions appropriately. Mood and affect are appropriate. She does have some mild tangential thinking, but she is easily redirected. Patient speaks in full sentences without needing to catch her breath. HEENT: Normocephalic atraumatic. Pupils are equally round reactive to light. Extraocular muscles are intact. Conjunctivae are moist without any icterus noted. Moist mucous membranes. Posterior pharynx is normal. Neck is soft without any lymphadenopathy. Cardiovascular: Heart is regular rate and rhythm S1 and S2 are present without any murmurs. Lungs: Clear to auscultation bilaterally no wheezes rhonchi or rales are appreciated. Patient takes deep breaths without any discomfort. Abdomen: Soft but distended. She has acute tenderness in the right side of the abdomen from about the belly button all the way up to the right upper quadrant. She has decreased bowel sounds. Positive Castillo's sign. Extremities: Bilateral lower extremities are without edema. She does have multiple bruises of the lower extremities. Skin: Well perfused. Const: Vital Signs, click to edit/add: Vital Signs - 24 hr 02/20/24 16:48 02/20/24 17:33 02/20/24 17:45 Temperature 99.2 F Pulse Rate 101 H 100 Pulse Rate [Right Pulse Oximeter] 108 H Respiratory Rate 18 Blood Pressure [Ri ght Upper Arm] 149/83 H Pulse Oximetry 95 94 94 Oxygen Delivery Me thod Room Air 02/20/24 18:03 02/20/24 18:15 02/20/24 18:20 Temperature Pulse Rate 110 H 106 H Pulse Rate [Right Pulse Oximeter] Respiratory Rate Blood Pressure [Ri ght Upper Arm] 142/81 H Pulse Oximetry 93 94 Oxygen Delivery Me thod 02/20/24 18:30 02/20/24 18:45 02/20/24 19:00 Temperature Pulse Rate 98 97 94 Pulse Rate [Right Pulse Oximeter] Respiratory Rate Blood Pressure [Ri ght Upper Arm] Pulse Oximetry 93 95 95 Oxygen Delivery Me thod Course Course ED Course: EKG, read by me, shows sinus tachycardia with a pulse of 107. CBC shows slightly elevated monocytes. Normal lactate. Normal LFTs. Troponin less than 0.01. Normal lipase. Sodium is low at 130. Remainder of electrolytes are unremarkable. CRP elevated at 5.5. UAs unremarkable. Abdominal CT scan showed evidence of potential cholecystitis. Because of this we proceeded with right upper quadrant ultrasound. This showed cholelithiasis, gallbladder wall thickening and sonographic tenderness concerning for developing cholecystitis. It discussed these results with the our surgeon Dr. Chamorro, who given the patient's recent stroke in anticoagulation recommended inpatient management with pain control and antibiotics. Discussed patient with Dr. Manuel, who accepts the patient for admission Vital Signs Vital signs: Initial Vital Signs Temperature 99.2 F 02/20/24 16:48 Temperature Source Temporal Artery Scan 02/20/24 16:48 Pulse Rate 108 H 02/20/24 16:48 Pulse Rhythm Regular 02/20/24 16:48 Respiratory Rate 18 02/20/24 16:48 Blood Pressure 149/83 H 02/20/24 16:48 Blood Pressure Mean 105 02/20/24 16:48 Blood Pressure Position Semi-Fowlers 02/20/24 16:48 Pulse Oximetry 95 02/20/24 16:48 Oxygen Delivery Method Room Air 02/20/24 16:48 Vital Signs Temperature 99.2 F 02/20/24 16:48 Pulse Rate 108 H 02/20/24 16:48 Respiratory Rate 18 02/20/24 16:48 Blood Pressure 149/83 H 02/20/24 16:48 Pulse Oximetry 95 02/20/24 16:48 Oxygen Delivery Method Room Air 02/20/24 16:48 Temperature 99.2 F 02/20/24 16:48 Pulse Rate 94 02/20/24 19:00 Respiratory Rate 18 02/20/24 16:48 Blood Pressure 142/81 H 02/20/24 18:20 Pulse Oximetry 95 02/20/24 19:00 Oxygen Delivery Method Room Air 02/20/24 16:48 Medications Administered Medications: Discontinued Medications Generic Name Dose Route Start Last Admin Trade Name Freq PRN Reason Stop Dose Admin Sodium Chloride 500 mls @ 500 mls/hr 02/20/24 18:30 02/20/24 20:02 0.9 % Sodium Chloride 500 Ml IV 02/20/24 19:29 Infused .Q1H ONE Infusion Medical Decision Making MDM Narrative Medical decision making narrative: Cholelithiasis, cholecystitis. The patient will be admitted for further management. Medical Records Medical records reviewed: Yes I reviewed the patient's medical records Lab Data Lab results reviewed: Yes I reviewed the patient's lab results Labs: Lab Results 02/20/24 02/20/24 Range/Units 17:05 18:02 WBC 9.16 (4.50-11.00) K/uL RBC 4.66 (4.00-5.20) m/uL Hgb 12.8 (12.0-16.0) gm/dL Hct 36.7 (33.0-51.0) % MCV 79 L (80-100) fL MCH 28 (26-34) pg MCHC 35 (32-36) gm/dL RDW Coeff of Mark 13.7 (11.5-15.5) % Plt Count 239 (140-440) K/uL Neut % (Auto) 69.2 (42.0-72.0) % Lymph % (Auto) 11.5 L (20-44) % [place] % (Auto) 18.3 H (0.0-11.0) % Eos % (Auto) 0.1 (0.0-7.0) % Baso % (Auto) 0.0 (0.0-3.0) % Neut # (Auto) 6.34 (1.7-7.0) K/uL Lymph # (Auto) 1.10 (0.90-2.90) K/uL [place] # (Auto) 1.70 H (0.00-0.90) K/UL Eos # (Auto) 0.01 (0.00-0.50) K/uL Baso # (Auto) 0.00 (0.00-0.30) K/uL Abs Immat Gran (auto) 0.08 (0.00-0.30) K/uL Imm/Tot Granulo (auto) 0.9 % Sodium 130 L (135-149) mmol/L Potassium 4.4 (3.6-5.1) mmol/L Chloride 99 (96-114) mmol/L Carbon Dioxide 20 (20-32) mmol/L Anion Gap 11 (7-15) mEq/L BUN 15 (7-30) mg/dL Creatinine 0.8 (0.5-1.5) mg/dL Estimated Creat Clear 41.05 Estimated GFR 75 ml/min Glucose 107 (60-115) mg/dL Lactate 0.7 (0.5-1.9) mmol/L Calcium 9.4 (8.4-10.6) mg/dL Total Bilirubin 1.5 (0.1-1.5) mg/dL Direct Bilirubin 0.4 (0.0-0.5) mg/dL AST 27 (12-35) U/L ALT 23 (4-35) U/L Alkaline Phosphatase 84 (40-150) U/L Troponin I < 0.01 L (0.01-0.04) ng/mL C-Reactive Protein 5.5 H (0.5-1.0) mg/dL Total Protein 8.1 (6.0-8.3) g/dL Albumin 4.6 (3.3-5.0) g/dL Lipase 58 (23-300) U/L Urine Color Yellow (Yellow) Urine Appearance Clear (Clear) Urine pH 7.0 (5.0-8.5) Ur Specific [place] 1.015 (1.000-1.030) Urine Protein Negative (Negative) Urine Glucose (UA) Negative (Negative) Urine Ketones Trace A (Negative) Urine Blood Negative (Negative) Urine Nitrite Negative (Negative) Urine Bilirubin Negative (Negative) Urine Urobilinogen 1.0 (0.2-1.0) Ur Leukocyte Esterase Negative (Negative) Urine RBC 0-2 (0-2) Urine WBC 0-2 (0-5) Ur Squamous Epith Cells None (None-Few) Urine Bacteria None (None) Imaging Data CT scan - abdomen: Attestation: I have reviewed the pertinent imaging results. Radiologist's impression: Study:?CT-Abdomen/Pelvis WITH-02/20/2024 5:24:53 PM Ordering Physician:Lencho Patel Final Report: Indication: Right lower quadrant pain and muscle spasms Technique: CT abdomen and pelvis with Intravenous contrast, dose and type not provided. An addendum to this dictation may be completed if this information is provided. Please note that all CT scans at this facility use dose modulation, iterative reconstruction, and/or weight-based dosing when appropriate to reduce radiation dose to as low as reasonably achievable. Comparison: None. Findings : Bibasilar atelectasis versus scarring present. Partially visualized coronary artery atherosclerotic calcifications are identified. There is a 12 millimeter left breast retroareolar asymmetric soft tissue density. Borderline thickened gallbladder hunt measure up to 4 millimeters and there is associated adjacent mesenteric stranding. The liver, spleen, adrenal glands, and pancreas are unremarkable. Vascular calcifications are noted within the kidneys which are symmetric in size and without stones or hydronephrosis. Urinary bladder is grossly unremarkable. Uterus is surgically absent. The hollow viscera without obstruction, focal bowel wall thickening or adjacent inflammatory stranding. The appendix is normal. There is no free air or ascites. Borderline enlarged right mid to lower mesenteric node measures 10 millimeters in the short axis, no other lymphadenopathy by size criteria. Moderate abdominal aortic atherosclerotic calcifications are demonstrated including narrowing at the origin of the right renal artery. Remainder of the abdominal aorta and its major branches are patent and normal in caliber. Soft tissues are otherwise unremarkable. Bones are intact and age-appropriate. L3 hemangioma is identified. Impression: 1. 12 millimeter asymmetric soft tissue density within the left retroareolar breast is nonspecific, with differential diagnosis to include malignancy. Recommend correlation with physical examination and updated mammogram. 2. 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 Recommend routine outpatient CT angiogram of the abdomen to adequately characterize. 3. Borderline thickened gallbladder hunt with adjacent inflammatory stranding may be seen with cholecystitis. Recommend correlation with physical examination and labs. Right upper quadrant ultrasound would further characterize. US - abdomen: Attestation: I have reviewed the pertinent imaging results. Radiologist's impression: Study:?US-Abdomen ABD LIMITED GB-02/20/2024 6:52:08 PM Ordering Physician:Lencho Patel Final Report: INDICATION: Right upper quadrant abdominal pain. TECHNIQUE: Ultrasound abdomen limited. COMPARISON: CT abdomen and pelvis February 20, 2024 FINDINGS: Gallbladder: There are layering calculi seen within the gallbladder with moderate sludge. There is thickening of the gallbladder wall measuring up to four. There is sonographic tenderness to palpation. Common bile duct: Nine mm. IMPRESSION: Cholelithiasis with gallbladder wall thickening and sonographic tenderness concerning for developing acute cholecystitis. Discharge Plan Discharge Clinical Impression: Cholecystitis, Breast nodule, Cholelithiasis Patient Disposition: Admitted As Observation Condition: Unchanged
[2024-02-20 17:50] LABS: Albumin* 4.6 g/dL (3.3-5.0)
[2024-02-20 17:53] LABS: Alanine Aminotransferase* 23 U/L (4-35); Alkaline Phosphatase* 84 U/L (40-150); Aspartate Amino Transferase* 27 U/L (12-35); Bilirubin Direct* 0.4 mg/dL (0.0-0.5); Bilirubin Total* 1.5 mg/dL (0.1-1.5); Lipase* 58 U/L (23-300); Total Protein* 8.1 g/dL (6.0-8.3)
[2024-02-20 18:07] LABS: Troponin I* < 0.01 ng/mL (0.01-0.04)
[2024-02-20 18:11] LABS: Appearance Urine Clear (Clear); Bilirubin Urine Negative (Negative); Blood Urine Negative (Negative); Color Urine Yellow (Yellow); Glucose Urine Negative (Negative); Ketones Urine Trace (Negative); Leukocyte Esterase Urine Negative (Negative); Nitrite Urine Negative (Negative); Protein Urine Negative (Negative); Specific Gravity Urine 1.015 (1.000-1.030)
[2024-02-20 18:15] LABS: Chloride* 99 mmol/L (96-114); Potassium* 4.4 mmol/L (3.6-5.1); Sodium* 130 mmol/L (135-149)
[2024-02-20 18:18] LABS: Creatinine* 0.8 mg/dL (0.5-1.5); Est. Creatinine Clearance* 41.05; Estimated Glomerular Filt Rate 75 ml/min
[2024-02-20 18:19] LABS: Anion Gap 11 mEq/L (7-15); Blood Urea Nitrogen* 15 mg/dL (7-30); Calcium* 9.4 mg/dL (8.4-10.6); Carbon Dioxide* 20 mmol/L (20-32); Glucose* 107 mg/dL (60-115)
[2024-02-20 18:22] LABS: C Reactive Protein* 5.5 mg/dL (0.5-1.0)
--- NOTE | 2024-02-20 18:28 | CRLHL7_ITS ---
For Patients: As a result of the Century Cures Act, medical imaging exams and procedure reports are released immediately into your electronic medical record. You may view this report before your referring provider. If you have questions, please contact your health care provider. INDICATION: Right upper quadrant abdominal pain. TECHNIQUE: Ultrasound abdomen limited. COMPARISON: CT abdomen and pelvis February 20, 2024 FINDINGS: Gallbladder: There are layering calculi seen within the gallbladder with moderate sludge. There is thickening of the gallbladder wall measuring up to four. There is sonographic tenderness to palpation. Common bile duct: Nine mm. IMPRESSION: Cholelithiasis with gallbladder wall thickening and sonographic tenderness concerning for developing acute cholecystitis. Dictated by Roger Kunz MD @ 02/20/2024 8:08:11 PM (Electronically Signed)
[2024-02-20] MEDS: 0.9 % SODIUM CHLORIDE 500 ML 500 ML IV (18:35)
[2024-02-20 18:38] LABS: RBC Urine 0-2 (0-2); WBC Urine 0-2 (0-5)
[2024-02-20] MEDS: HYDROmorphone 0.5 mg/0.5 ml inj IVP (20:41)
[2024-02-20] MEDS: PIPERACILLIN/TAZOBACTAM 3.375 GM in 0.9 % SODIUM CHLORIDE Mini-bag 100 ML IVPB (20:45)
--- NOTE | 2024-02-20 22:10 | PM.IMHP1 ---
Hospitalist- H&P: HPI History of Present Illness Time Seen by Provider: 21:40 Date Seen: 02/20/24 Chief complaint: Abdominal pain Narrative: Marjan Urbina is a 78 year old female known to me from a recent admission for ischemic stroke who presented through the ER for RUQ abdominal pain. She was discharged to a local [place] [facility] facility, [place], with PT and OT. She tells me that she has graduated from there in is now in what sounds like an assisted living. They set up medications for her and she still needs standby assistance with ambulation with a walker. Yesterday around noon, just after eating lunch, she started having sharp right upper quadrant pain and more generalized abdominal cramping. The pain has been intermittent, but bad enough that it interfered with her PT and OT. She is also not able to eat much because she feels nauseous. She denies any fevers or chills. Review of Systems Status of ROS: Reports: 10 or more systems reviewed and unremarkable except as noted in History and below [facility] Medical History (Updated 02/20/24 @ 23:01 by Indiana Manuel MD) Muscle spasm ?M62.838 - Other muscle spasm (ICD-10) Noncompliance with medication regimen ?Z91.148 - Patient's other noncompliance with medication regimen for other reason (ICD-10) Colon cancer screening declined ?Z53.20 - Procedure and treatment not carried out because of patient's decision for unspecified reasons (ICD-10) Cervical cancer screening declined ?Z53.20 - Procedure and treatment not carried out because of patient's decision for unspecified reasons (ICD-10) Vaccination declined ?Z28.21 - Immunization not carried out because of patient refusal (ICD-10) Hypertension ?I10 - Essential (primary) hypertension (ICD-10) Fractured coccyx ?S32.2XXA - Fracture of coccyx, initial encounter for closed fracture (ICD-10) Rib fractures ?S22.49XA - Multiple fractures of ribs, unspecified side, initial encounter for closed fracture (ICD-10) Electrocution ?T75.4XXA - Electrocution, initial encounter (ICD-10) Mixed hyperlipidemia ?E78.2 - Mixed hyperlipidemia (ICD-10) Ischemic stroke ?I63.9 - Cerebral infarction, unspecified (ICD-10) Benign ovarian tumor ?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.9 - Benign neoplasm of unspecified ovary (ICD-10) Hypothyroidism ?E03.9 - Hypothyroidism, unspecified (ICD-10) Surgical History H/O bilateral oophorectomy (~1988) ?Z90.722 - Acquired absence of ovaries, bilateral (ICD-10) H/O hysterectomy for benign disease (~1976) ?Z90.710 - Acquired absence of both cervix and uterus (ICD-10) Hx of tonsillectomy ?Z90.89 - Acquired absence of other organs (ICD-10) Family History Brother Alcohol dependence Drug dependence Brother Diabetes Father Myocardial infarction High blood pressure Paternal Grandfather Myocardial infarction Mother High blood pressure Sister High blood pressure Maternal Grandmother Leukemia Social History (Updated 02/20/24 @ 22:51 by Indiana Manuel MD) Narrative: , lives independently with , Fabricio; has been at [facility] and now assisted living recently due to stroke. 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 She has a sister and several adult children who live in the area. Denies tobacco use, quit smoking at age 30. Drinks 1 glass of wine 5 nights a week, no other alcohol use. Denies recreational drug use. Patient desires to be DNR/DNI. What is your current living situation?: I presently have a place to live Problems where you live: no known problems Problems where you live details: N/A In the past 12 months, utilities in danger of being shut off: no In past 12 months, lack of transportation kept you from medical appts, meetings, work, or getting things needed for daily living: no In the past 12 mos, have been you worried that your food would run out before you had money to buy more?: never true In the past 12 mos, the food you bought just didn't last and you didn't have money to buy more?: never true Highest level of school completed/degree received: some college, no degree Smoking Status: Former smoker What tobacco products do you use: cigarettes Smoking quit date/years: >15 years ago Do you use any of these nicotine containing products: None Second hand tobacco smoke exposure: No How often do you have a drink containing alcohol: 4 or more times a week Alcohol type: beer and wine Alcohol type details: 1 beer/wine 5x/week with meals How many standard drinks containing alcohol do you have on a typical day: 1 or 2 How often do you have six or more drinks on one occasion: Never AUDIT-C Alcohol total score: 4 Non-prescribed substance use: denies use Caffeine: Yes (2-3 cups of coffee/day) How often does anyone, including family, friends and others, physically hurt you: never How often does anyone, including family, friends and others, insult or talk down to you: never How often does anyone, including family, friends and others, threaten you with harm: never How often does anyone, including family, friends and others, scream or curse at you: never service: No Meds Home Medications and Allergies Home Medications ?Medication ?Instructions ?Recorded ?Confirmed ?Type cyclobenzaprine 5 mg tablet mg PO 02/20/24 History oxycodone 5 mg tablet 5 mg PO Q4H PRN pain 02/20/24 02/20/24 History Allergies Allergy/AdvReac Type Severity Reaction Status Date / Time chocolate Allergy Mild Diarrhea Verified 02/20/24 16:53 corn AdvReac Mild Diarrhea Verified 02/20/24 16:53 Exam Narrative: Exam Narrative: General: No acute distress. Awake alert oriented x3. Obese. HEENT: Normocephalic atraumatic, pupils equally round and reactive to light and accommodation. Mucous membranes are moist. No cervical lymphadenopathy, thyromegaly or carotid bruits. No JVD. Cardiovascular: Regular rate and rhythm. Grade 1/6 systolic murmur loudest at the right upper sternal border. Chest: No increased work of breathing. Clear to auscultation bilaterally. No crackles or wheezes. Abdomen: Bowel sounds present. Soft, nondistended, tender in the right upper quadrant at McBurney's point. No hepatosplenomegaly or masses. Extremities: No edema, no cyanosis or clubbing. Skin: No jaundice, no pallor, no rashes. Neuro: She now has some ability to lift and move her left arm, which is different from my exam at the end of December. Left lower facial droop is more difficult to recognize on my exam today. Left leg remains slightly weak as well, her neuro exam is otherwise unchanged and overall improved from when I saw her in December. Const: Vital Signs, click to edit/add: Vital Signs - 24 hr 02/20/24 16:48 02/20/24 17:33 02/20/24 17:45 Temperature 99.2 F Pulse Rate 101 H 100 Pulse Rate [Left R adial] Pulse Rate [Right Pulse Oximeter] 108 H Respiratory Rate 18 Blood Pressure [Ri ght Arm] Blood Pressure [Ri ght Upper Arm] 149/83 H Pulse Oximetry 95 94 94 Oxygen Delivery Me thod Room Air 02/20/24 18:03 02/20/24 18:15 02/20/24 18:20 Temperature Pulse Rate 110 H 106 H Pulse Rate [Left R adial] Pulse Rate [Right Pulse Oximeter] Respiratory Rate Blood Pressure [Ri ght Arm] Blood Pressure [Ri ght Upper Arm] 142/81 H Pulse Oximetry 93 94 Oxygen Delivery Me thod 02/20/24 18:30 02/20/24 18:45 02/20/24 19:00 Temperature Pulse Rate 98 97 94 Pulse Rate [Left R adial] Pulse Rate [Right Pulse Oximeter] Respiratory Rate Blood Pressure [Ri ght Arm] Blood Pressure [Ri ght Upper Arm] Pulse Oximetry 93 95 95 Oxygen Delivery Me thod 02/20/24 21:31 02/20/24 21:41 Temperature 98.5 F Pulse Rate Pulse Rate [Left R adial] 100 Pulse Rate [Right Pulse Oximeter] Respiratory Rate 16 16 Blood Pressure [Ri ght Arm] 148/72 H Blood Pressure [Ri ght Upper Arm] Pulse Oximetry 93 93 Oxygen Delivery Me thod Room Air Room Air Hospitalist - H&P: Result Labs Labs: Short CBC 02/20/24 Range/Units 17:05 WBC 9.16 (4.50-11.00) K/uL Hgb 12.8 (12.0-16.0) gm/dL Hct 36.7 (33.0-51.0) % Plt Count 239 (140-440) K/uL BMP 02/20/24 17:05 Sodium 130 L Potassium 4.4 Chloride 99 Carbon Dioxide 20 BUN 15 Creatinine 0.8 Glucose 107 Calcium 9.4 Cardiac Enzymes 02/20/24 Range/Units 17:05 Troponin I < 0.01 L (0.01-0.04) ng/mL Liver Function 02/20/24 Range/Units 17:05 Total Bilirubin 1.5 (0.1-1.5) mg/dL Direct Bilirubin 0.4 (0.0-0.5) mg/dL AST 27 (12-35) U/L ALT 23 (4-35) U/L Alkaline Phosphatase 84 (40-150) U/L Albumin 4.6 (3.3-5.0) g/dL Urine 02/20/24 Range/Units 18:02 Urine Color Yellow (Yellow) Urine Appearance Clear (Clear) Urine pH 7.0 (5.0-8.5) Ur Specific [place] 1.015 (1.000-1.030) Urine Protein Negative (Negative) Urine Glucose (UA) Negative (Negative) Procedure(s): CT abdomen pelvis w con Accession Number(s): [id number] cc: Amanda Negro M.D.; Provider,Not a Local~ For Patients: As a result of the Cures Act, medical imaging exams and procedure reports are released immediately into your electronic medical record. You may view this report before your referring provider. If you have questions, please contact your health care provider. Indication: Right lower quadrant pain and muscle spasms Technique: CT abdomen and pelvis with Intravenous contrast, dose and type not provided. An addendum to this dictation may be completed if this information is provided. Please note that all CT scans at this facility use dose modulation, iterative reconstruction, and/or weight-based dosing when appropriate to reduce radiation dose to as low as reasonably achievable. Comparison: None. Findings : Bibasilar atelectasis versus scarring present. Partially visualized coronary artery atherosclerotic calcifications are identified. There is a 12 millimeter left breast retroareolar asymmetric soft tissue density. Borderline thickened gallbladder hunt measure up to 4 millimeters and there is associated adjacent mesenteric stranding. The liver, spleen, adrenal glands, and pancreas are unremarkable. Vascular calcifications are noted within the kidneys which are symmetric in size and without stones or hydronephrosis. Urinary bladder is grossly unremarkable. Uterus is surgically absent. The hollow viscera without obstruction, focal bowel wall thickening or adjacent inflammatory stranding. The appendix is normal. There is no free air or ascites. Borderline enlarged right mid to lower mesenteric node measures 10 millimeters in the short axis, no other lymphadenopathy by size criteria. Moderate abdominal aortic atherosclerotic calcifications are demonstrated including narrowing at the origin of the right renal artery. Remainder of the abdominal aorta and its major branches are patent and normal in caliber. Soft tissues are otherwise unremarkable. Bones are intact and age-appropriate. L3 hemangioma is identified. Impression: 1. 12 millimeter asymmetric soft tissue density within the left retroareolar breast is nonspecific, with differential diagnosis to include malignancy. Recommend correlation with physical examination and updated mammogram. 2. 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 Recommend routine outpatient CT angiogram of the abdomen to adequately characterize. 3. Borderline thickened gallbladder hunt with adjacent inflammatory stranding may be seen with cholecystitis. Recommend correlation with physical examination and labs. Right upper quadrant ultrasound would further characterize. Please note that all CT scans at this facility use dose modulation, iterative reconstruction, and/or weight-based dosing when appropriate to reduce radiation dose to as low as reasonably achievable. Dictated by Bruce Fu MD @ 02/20/2024 6:18:39 PM (Electronically Signed) Procedure(s): US abdomen limited Accession Number(s): [id number] cc: Amanda Negro M.D.; Provider,Not a Local~ For Patients: As a result of the Cures Act, medical imaging exams and procedure reports are released immediately into your electronic medical record. You may view this report before your referring provider. If you have questions, please contact your health care provider. INDICATION: Right upper quadrant abdominal pain. TECHNIQUE: Ultrasound abdomen limited. COMPARISON: CT abdomen and pelvis February 20, 2024 FINDINGS: Gallbladder: There are layering calculi seen within the gallbladder with moderate sludge. There is thickening of the gallbladder wall measuring up to four. There is sonographic tenderness to palpation. Common bile duct: Nine mm. IMPRESSION: Cholelithiasis with gallbladder wall thickening and sonographic tenderness concerning for developing acute cholecystitis. Dictated by Roger Kunz MD @ 02/20/2024 8:08:11 PM (Electronically Signed) Assessment and Plan Assessment and plan (1) Cholecystitis: Problem comment: - acute, with cholelithiasis - I spoke with Dr. Chamorro from general surgery who noted that surgery within 3 months of a stroke is not recommended due to increased risk of adverse events such as worsening stroke symptoms or recurrent stroke. She recommends medical management with IV antibiotics and, if not improving or if worse, transfer for cholecystostomy tube. - Admit for treatment with IV zosyn. Start IVF. Start clears, continue home medications. Monitor LFTs. Status: Acute (2) Muscle spasm: Problem comment: Muscle spasms in left arm and leg, stroke distribution. Baclofen helpful Status: Chronic (3) Hypertension: Problem comment: Lisinopril 10 mg started January 20. Amlodipine 5 mg started January 21. Spironolactone started January 23. Three years ago had evaluation for hyper aldosteronism which was unremarkable. - Continue home medications. Status: Chronic (4) Breast nodule: Problem comment: - 02/20/24 CT abd/pelvis: 12 millimeter asymmetric soft tissue density within the left retroareolar breast is nonspecific, with differential diagnosis to include malignancy. Recommend correlation with physical examination and updated mammogram Status: Acute (5) Renal artery stenosis: Problem comment: 02/20/24 CT abd/pelvis: Stenosis at the origin of the right renal artery. Recommend routine outpatient CT angiogram of the abdomen to adequately characterize. Status: Acute
[2024-02-20] MEDS: LACTATED RINGERS 1000 ML 1,000 ML 75 ML IV (23:20)
[2024-02-21] VITALS (10 sets, daily range): BP systolic 122–150; BP diastolic 70–86; PULSE 87–104; RESP 16; TEMP 36.3–37.2; O2SAT 91–93
[2024-02-21] MEDS: SODIUM CHLORIDE 0.9 % (FLUSH) 10 ML SYRINGE 5 ML IVF ×3 (00:21→20:12)
[2024-02-21] MEDS: HYDROmorphone 0.5 mg/0.5 ml inj IVP (00:21)
[2024-02-21] MEDS: PIPERACILLIN/TAZOBACTAM 3.375 GM in 0.9 % SODIUM CHLORIDE Mini-bag 100 ML IVPB ×4 (03:00→20:11)
--- NOTE | 2024-02-21 03:21 | PC.NURSE ---
Pt came to floor late evening. Right Sided AB pain. No Surgery at this time. Pt on Clears. A2 to pivot to commode. Pt weak on left side due to CVA 1 month ago. Pt refuses SCDs and TEDs due to bruising and soreness of LEs.
[2024-02-21 06:33] LABS: Basophils Absolute Auto 0.01 K/uL (0.00-0.30); Basophils Percent Auto 0.1 % (0.0-3.0); Eosinophils Absolute Auto 0.01 K/uL (0.00-0.50); Eosinophils Percent Auto 0.1 % (0.0-7.0); Hematocrit 36.9 % (33.0-51.0); Hemoglobin* 12.6 gm/dL (12.0-16.0); Immature Granulocytes Abs Auto 0.04 K/uL (0.00-0.30); Immature Granulocytes Pct Auto 0.6 %; Lymphocytes Percent Auto 15.1 % (20-44); Mean Corpuscular HGB Conc 34 gm/dL (32-36); Mean Corpuscular Hemoglobin 27 pg (26-34); Mean Corpuscular Volume 80 fL (80-100); Monocytes Percent Auto 31.9 % (0.0-11.0); Neutrophils Absolute Auto 3.47 K/uL (1.7-7.0); Neutrophils Percent Auto 52.2 % (42.0-72.0); Platelet Count* 213 K/uL (140-440); RDW Coefficient of Variation % 13.9 % (11.5-15.5); White Blood Count* 6.67 K/uL (4.50-11.00)
[2024-02-21 06:34] LABS: Slide Review Reflex No
[2024-02-21 06:49] LABS: Albumin* 4.3 g/dL (3.3-5.0)
[2024-02-21 06:50] LABS: Chloride* 99 mmol/L (96-114); Potassium* 3.8 mmol/L (3.6-5.1); Sodium* 132 mmol/L (135-149)
[2024-02-21 06:52] LABS: Alkaline Phosphatase* 79 U/L (40-150); Anion Gap 9 mEq/L (7-15); Aspartate Amino Transferase* 24 U/L (12-35); Bilirubin Direct* 0.4 mg/dL (0.0-0.5); Blood Urea Nitrogen* 16 mg/dL (7-30); Carbon Dioxide* 24 mmol/L (20-32); Creatinine* 0.9 mg/dL (0.5-1.5); Est. Creatinine Clearance* 36.08; Estimated Glomerular Filt Rate 65 ml/min; Total Protein* 7.6 g/dL (6.0-8.3)
[2024-02-21 06:53] LABS: Alanine Aminotransferase* 20 U/L (4-35); Calcium* 8.9 mg/dL (8.4-10.6); Glucose* 96 mg/dL (60-115)
[2024-02-21 08:48] LABS: Gamma Glutamyl Transpeptidase* 62 U/L (8-55); Lipase* 50 U/L (23-300)
[2024-02-21 09:03] LABS: C Reactive Protein* 13.2 mg/dL (0.5-1.0)
--- NOTE | 2024-02-21 09:13 | PM.GSCN ---
History of Present Illness Consult details Date Seen: 02/21/24 Consult date: 02/21/24 Narrative: The patient is a 78-year-old female who came to the emergency department yesterday from her care facility with 2 days of right-sided abdominal pain. She states that the pain is worse with eating. In fact, she tried having brought today and her symptoms worsened. She thinks that she has been having issues on and off since she had an ischemic stroke 1 month ago. She states that the pain radiates to her back. She has not had any nausea. The pain feels like a muscle spasm she says. She thought that since her stroke she was just having more gas pain. She has been more constipated as well. She was found on imaging to have cholecystitis. She was admitted to the hospital for further care. She has a history of CVA remotely and also again last December. She was treated here at [facility]. It was recommended she be started on Plavix and aspirin for 3 weeks. She comes in still on Plavix. She has resultant left-sided weakness from her recent stroke as well as a slight left-sided facial droop. This has improved slightly from her knee shell presentation with her acute stroke. [facility] Medical History (Updated 02/21/24 @ 11:02 by Lore Avery MD) History of ischemic multifocal multiple vascular territories stroke ?Z86.73 - Personal history of transient ischemic attack (TIA), and cerebral infarction without residual deficits (ICD-10) Muscle spasm ?M62.838 - Other muscle spasm (ICD-10) Noncompliance with medication regimen ?Z91.148 - Patient's other noncompliance with medication regimen for other reason (ICD-10) Colon cancer screening declined ?Z53.20 - Procedure and treatment not carried out because of patient's decision for unspecified reasons (ICD-10) Cervical cancer screening declined ?Z53.20 - Procedure and treatment not carried out because of patient's decision for unspecified reasons (ICD-10) Vaccination declined ?Z28.21 - Immunization not carried out because of patient refusal (ICD-10) Hypertension ?I10 - Essential (primary) hypertension (ICD-10) Fractured coccyx ?S32.2XXA - Fracture of coccyx, initial encounter for closed fracture (ICD-10) Rib fractures ?S22.49XA - Multiple fractures of ribs, unspecified side, initial encounter for closed fracture (ICD-10) Electrocution ?T75.4XXA - Electrocution, initial encounter (ICD-10) Mixed hyperlipidemia ?E78.2 - Mixed hyperlipidemia (ICD-10) Benign ovarian tumor ?D27.9 - Benign neoplasm of unspecified ovary (ICD-10) Hypothyroidism ?E03.9 - Hypothyroidism, unspecified (ICD-10) Surgical History H/O bilateral oophorectomy (~1988) ?Z90.722 - Acquired absence of ovaries, bilateral (ICD-10) H/O hysterectomy for benign disease (~1976) ?Z90.710 - Acquired absence of both cervix and uterus (ICD-10) Hx of tonsillectomy ?Z90.89 - Acquired absence of other organs (ICD-10) Family History Brother Alcohol dependence Drug dependence Brother Diabetes Father Myocardial infarction High blood pressure Paternal Grandfather Myocardial infarction Mother High blood pressure Sister High blood pressure Maternal Grandmother Leukemia Social History (Updated 02/20/24 @ 22:51 by Indiana Manuel MD) Narrative: , lives independently with , Fabricio; has been at [facility] and now assisted living recently due to stroke. 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 She has a sister and several adult children who live in the area. Denies tobacco use, quit smoking at age 30. Drinks 1 glass of wine 5 nights a week, no other alcohol use. Denies recreational drug use. Patient desires to be DNR/DNI. What is your current living situation?: I presently have a place to live Problems where you live: no known problems Problems where you live details: N/A In the past 12 months, utilities in danger of being shut off: no In past 12 months, lack of transportation kept you from medical appts, meetings, work, or getting things needed for daily living: no In the past 12 mos, have been you worried that your food would run out before you had money to buy more?: never true In the past 12 mos, the food you bought just didn't last and you didn't have money to buy more?: never true Highest level of school completed/degree received: some college, no degree Smoking Status: Former smoker What tobacco products do you use: cigarettes Smoking quit date/years: >15 years ago Do you use any of these nicotine containing products: None Second hand tobacco smoke exposure: No How often do you have a drink containing alcohol: 4 or more times a week Alcohol type: beer and wine Alcohol type details: 1 beer/wine 5x/week with meals How many standard drinks containing alcohol do you have on a typical day: 1 or 2 How often do you have six or more drinks on one occasion: Never AUDIT-C Alcohol total score: 4 Non-prescribed substance use: denies use Caffeine: Yes (2-3 cups of coffee/day) How often does anyone, including family, friends and others, physically hurt you: never How often does anyone, including family, friends and others, insult or talk down to you: never How often does anyone, including family, friends and others, threaten you with harm: never How often does anyone, including family, friends and others, scream or curse at you: never service: No Meds Home Medications and Allergies Home Medications ?Medication ?Instructions ?Recorded ?Confirmed ?Type cyclobenzaprine 5 mg tablet mg PO 02/20/24 History oxycodone 5 mg tablet 5 mg PO Q4H PRN pain 02/20/24 02/20/24 History amlodipine 10 mg tablet 10 mg PO DAILY 02/21/24 02/21/24 History baclofen 5 mg tablet 5 mg PO 3XD PRN muscle spasm 02/21/24 02/21/24 History lisinopril 40 mg tablet 40 mg PO DAILY 02/21/24 02/21/24 History Allergies Allergy/AdvReac Type Severity Reaction Status Date / Time chocolate Allergy Mild Diarrhea Verified 02/20/24 16:53 corn AdvReac Mild Diarrhea Verified 02/20/24 16:53 Exam Narrative: Exam Narrative: General: Patient is in no acute distress. She appears alert, however did fall asleep during our discussion. CV: Regular rate Respiratory: Clear to auscultation bilaterally Abdomen: Protuberant. She is markedly tender in the right upper quadrant epigastric region with guarding. No upper abdominal scars. Const: Vital Signs, click to edit/add: Vital Signs - 24 hr 02/20/24 16:48 02/20/24 17:33 02/20/24 17:45 Temperature 99.2 F Pulse Rate 101 H 100 Pulse Rate [Left R adial] Pulse Rate [Right Pulse Oximeter] 108 H Respiratory Rate 18 Blood Pressure [Ri ght Arm] Blood Pressure [Ri ght Upper Arm] 149/83 H Pulse Oximetry 95 94 94 Oxygen Delivery Me thod Room Air 02/20/24 18:03 02/20/24 18:15 02/20/24 18:20 Temperature Pulse Rate 110 H 106 H Pulse Rate [Left R adial] Pulse Rate [Right Pulse Oximeter] Respiratory Rate Blood Pressure [Ri ght Arm] Blood Pressure [Ri ght Upper Arm] 142/81 H Pulse Oximetry 93 94 Oxygen Delivery Me thod 02/20/24 18:30 02/20/24 18:45 02/20/24 19:00 Temperature Pulse Rate 98 97 94 Pulse Rate [Left R adial] Pulse Rate [Right Pulse Oximeter] Respiratory Rate Blood Pressure [Ri ght Arm] Blood Pressure [Ri ght Upper Arm] Pulse Oximetry 93 95 95 Oxygen Delivery Me thod 02/20/24 21:31 02/20/24 21:41 02/20/24 22:18 Temperature 98.5 F 98.5 F Pulse Rate Pulse Rate [Left R adial] 100 100 Pulse Rate [Right Pulse Oximeter] Respiratory Rate 16 16 16 Blood Pressure [Ri ght Arm] 148/72 H 148/72 H Blood Pressure [Ri ght Upper Arm] Pulse Oximetry 93 93 93 Oxygen Delivery Me thod Room Air Room Air Room Air 02/20/24 22:18 02/20/24 22:20 02/20/24 23:10 Temperature 98.5 F Pulse Rate Pulse Rate [Left R adial] 100 100 Pulse Rate [Right Pulse Oximeter] Respiratory Rate 16 16 Blood Pressure [Ri ght Arm] 148/72 H Blood Pressure [Ri ght Upper Arm] Pulse Oximetry 93 93 Oxygen Delivery Me thod Room Air 02/21/24 03:00 02/21/24 07:00 02/21/24 07:00 Temperature 98.5 F Pulse Rate Pulse Rate [Left R adial] 93 97 Pulse Rate [Right Pulse Oximeter] Respiratory Rate 16 16 16 Blood Pressure [Ri ght Arm] 142/74 H Blood Pressure [Ri ght Upper Arm] Pulse Oximetry 93 92 Oxygen Delivery Me thod Room Air Room Air 02/21/24 07:00 Temperature 98.0 F Pulse Rate Pulse Rate [Left R adial] 97 Pulse Rate [Right Pulse Oximeter] Respiratory Rate 16 Blood Pressure [Ri ght Arm] 150/84 H Blood Pressure [Ri ght Upper Arm] Pulse Oximetry 92 Oxygen Delivery Me thod Room Air Results Labs Labs: White blood cell count remains normal at 6.6. CRP is 13.2 from 5.5 on admission. Total bilirubin is 2.0 today from 1.5 on admission. This is elevated, however appears to be an indirect hyperbilirubinemia as direct bilirubin is 0.4. AST, ALT and alkaline phosphatase are normal. GGT is mildly elevated at 62. Troponin is undetectable. Lipase is normal. Imaging Abdomen CT scan report/results: report reviewed and image reviewed Abdominal ultrasound report/results: report reviewed and image reviewed Additional studies: Abdominal ultrasound: INDICATION: Right upper quadrant abdominal pain. TECHNIQUE: Ultrasound abdomen limited. COMPARISON: CT abdomen and pelvis February 20, 2024 FINDINGS: Gallbladder: There are layering calculi seen within the gallbladder with moderate sludge. There is thickening of the gallbladder wall measuring up to four. There is sonographic tenderness to palpation. Common bile duct: Nine mm. IMPRESSION: Cholelithiasis with gallbladder wall thickening and sonographic tenderness concerning for developing acute cholecystitis. Dictated by Roger Kunz MD @ 02/20/2024 8:08:11 PM Indication: Right lower quadrant pain and muscle spasms Technique: CT abdomen and pelvis with Intravenous contrast, dose and type not provided. An addendum to this dictation may be completed if this information is provided. Please note that all CT scans at this facility use dose modulation, iterative reconstruction, and/or weight-based dosing when appropriate to reduce radiation dose to as low as reasonably achievable. Comparison: None. Findings : Bibasilar atelectasis versus scarring present. Partially visualized coronary artery atherosclerotic calcifications are identified. There is a 12 millimeter left breast retroareolar asymmetric soft tissue density. Borderline thickened gallbladder hunt measure up to 4 millimeters and there is associated adjacent mesenteric stranding. The liver, spleen, adrenal glands, and pancreas are unremarkable. Vascular calcifications are noted within the kidneys which are symmetric in size and without stones or hydronephrosis. Urinary bladder is grossly unremarkable. Uterus is surgically absent. The hollow viscera without obstruction, focal bowel wall thickening or adjacent inflammatory stranding. The appendix is normal. There is no free air or ascites. Borderline enlarged right mid to lower mesenteric node measures 10 millimeters in the short axis, no other lymphadenopathy by size criteria. Moderate abdominal aortic atherosclerotic calcifications are demonstrated including narrowing at the origin of the right renal artery. Remainder of the abdominal aorta and its major branches are patent and normal in caliber. Soft tissues are otherwise unremarkable. Bones are intact and age-appropriate. L3 hemangioma is identified. Impression: 1. 12 millimeter asymmetric soft tissue density within the left retroareolar breast is nonspecific, with differential diagnosis to include malignancy. Recommend correlation with physical examination and updated mammogram. 2. 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 Recommend routine outpatient CT angiogram of the abdomen to adequately characterize. 3. Borderline thickened gallbladder hunt with adjacent inflammatory stranding may be seen with cholecystitis. Recommend correlation with physical examination and labs. Right upper quadrant ultrasound would further characterize. Please note that all CT scans at this facility use dose modulation, iterative reconstruction, and/or weight-based dosing when appropriate to reduce radiation dose to as low as reasonably achievable. Dictated by Bruce Fu MD @ 02/20/2024 6:18:39 PM Progress Note:A&P Assessment and plan (1) Cholecystitis: Status: Acute (2) History of ischemic multifocal multiple vascular territories stroke: Status: Acute (3) Hypertension: Status: Chronic Plan The patient is a 78-year-old female with recent ischemic stroke with acute calculous cholecystitis. Currently she is anticoagulated with anti-platelet agents though, Plavix could be held at this point given that she has completed 3 weeks of therapy per neurology recommendations. She is at risk given the close proximity to her second stroke, of further stroke in the perioperative period. Various studies of patients undergoing elective non-cardiac surgery within 30 days of ischemic stroke have an 8-11 x increased risk of second stroke when compared to patients with no prior stroke and increased risk of cardiovascular events and . This risk is highest in the first three months. Considering this, the acute inflammation and anti-platelet agents which both increase operative time and risk, I recommend a conservative approach with antibiotics and bowel rest. If she worsens then I would recommend cholecystostomy tube to decompress her gallbladder. This would need to be done at a tertiary center.
[2024-02-21] MEDS: AMLODIPINE 5 MG TABLET PO (09:28)
[2024-02-21] MEDS: ASPIRIN 81 MG TAB.CHEW PO (09:28)
[2024-02-21] MEDS: ROSUVASTATIN CALCIUM 10 MG TABLET 40 MG PO (09:28)
[2024-02-21] MEDS: SPIRONOLACTONE 25 MG TABLET PO (09:28)
[2024-02-21] MEDS: CLOPIDOGREL 75 MG TABLET PO (09:29)
[2024-02-21] MEDS: lisinopriL 10 MG TABLET PO (09:29)
[2024-02-21 09:58] LABS: Gamma Glutamyl Transpeptidase* 69 U/L (8-55)
--- NOTE | 2024-02-21 10:11 | PM.IMPN1 ---
Progress Note: A&P Assessment and plan (1) Cholecystitis: Problem details: - acute, with cholelithiasis - I spoke with Dr. Chamorro from general surgery who noted that surgery within 3 months of a stroke is not recommended due to increased risk of adverse events such as worsening stroke symptoms or recurrent stroke. She recommends medical management with IV antibiotics and, if not improving or if worse, transfer for cholecystostomy tube. - Admit for treatment with IV zosyn. Start IVF. Start clears, continue home medications. Monitor LFTs. Status: Acute (2) History of ischemic multifocal multiple vascular territories stroke: Problem details: 01/19/24 Left arm and leg weakness due to right powell radiata stroke. Presented beyond the time frame for intravascular intervention or thrombolytics. No large vessel occlusion on MRA. No obvious atrial fibrillation though patient declined telemetry. No obvious embolic source on echo though possible PFO. Significant ongoing left hand and foot weakness. Stroke rehab at SNF. Tx with ASA and PLAVIX. Held Plavix as of 02/20 (needed three weeks only post stroke) 05/02/2021 hospitalized for stroke involving posterior limb of the left internal capsule. Started on amlodipine, lisinopril, aspirin, and statin but patient quit shortly after starting due to side effects. Good recovery afterwards. Status: Acute (3) Hypertension: Problem details: Lisinopril 10 mg started January 20. Amlodipine 5 mg started January 21. Spironolactone started January 23. Three years ago had evaluation for hyper aldosteronism which was unremarkable. 02/20/24 CT abd/pelvis: Stenosis at the origin of the right renal artery. Recommend routine outpatient CT angiogram of the abdomen to adequately characterize. - Continue home medications. Status: Chronic (4) Renal artery stenosis: Problem details: 02/20/24 CT abd/pelvis: Stenosis at the origin of the right renal artery. Recommend routine outpatient CT angiogram of the abdomen to adequately characterize. Status: Acute (5) Breast nodule: Problem details: - 02/20/24 CT abd/pelvis: 12 millimeter asymmetric soft tissue density within the left retroareolar breast is nonspecific, with differential diagnosis to include malignancy. Recommend correlation with physical examination and updated mammogram Status: Acute Subjective Date Seen: 02/21/24 Interval history: Daily Progress Note - Hospital Medicine Day #: 2 CC: Acute cholecystitis, recent stroke. OVERNIGHT UPDATES FROM STAFF & MED, LAB, IMAGING UPDATES Patient has not required any opioid analgesics. She has remained afebrile. She is tolerating a trial of clears. She describes spikes of discomfort in her right upper quadrant that are fleeting. No nausea or vomiting. No chest pain. -she is receiving Zosyn. -she continues on a Plavix 75, aspirin 81 mg for her right-sided powell radiata posterior limb internal capsule stroke from December. (>3 weeks of plavix - HOLDING as of 02/20) -her last dose of hydromorphone was at 12:21 a.m.. -she remains on LR at 75 mL an hour Objective: Vitals: see above Lungs: Clear. Cardiac: S1S2. CBC demonstrates a normal white blood cell count, actually down from yesterday 9.16 down to 6.67. Her hemoglobin is stable at 12.6, her platelets are normal at 213. Her hyponatremia is improving as she is up to 132. Her baseline appears to be 137-140 Normal electrolytes. Normal renal function. Her bilirubin has bumped from 1.5 up to 2.0, normal direct. Her GGT is down trending 69-62. Her LFTs are normal. Her troponin was normal on admission. Her CRP has jumped from 5.5-13.2. Her lipase is normal. Right upper quadrant ultrasound is reviewed. Cholelithiasis with gallbladder wall thickening and sonographic tenderness concerning for developing acute cholecystitis. -urine culture is pending. Disposition/Potential discharge - Likely to return to previous living situation. Today I spent 50minutes seeing the patient, reviewing Expanse and EPIC notes/diagnostics, discussing the care plan with our care time that includes social work, PT/OT, pharmacy, RT, mcfp and documenting my impressions and plan in the medical record. Exam Const: Vital Signs, click to edit/add: Vital Signs - 24 hr 02/20/24 16:48 02/20/24 17:33 02/20/24 17:45 Temperature 99.2 F Pulse Rate 101 H 100 Pulse Rate [Left R adial] Pulse Rate [Right Pulse Oximeter] 108 H Respiratory Rate 18 Blood Pressure [Ri ght Arm] Blood Pressure [Ri ght Upper Arm] 149/83 H Pulse Oximetry 95 94 94 Oxygen Delivery Me thod Room Air 02/20/24 18:03 02/20/24 18:15 02/20/24 18:20 Temperature Pulse Rate 110 H 106 H Pulse Rate [Left R adial] Pulse Rate [Right Pulse Oximeter] Respiratory Rate Blood Pressure [Ri ght Arm] Blood Pressure [Ri ght Upper Arm] 142/81 H Pulse Oximetry 93 94 Oxygen Delivery Me thod 02/20/24 18:30 02/20/24 18:45 02/20/24 19:00 Temperature Pulse Rate 98 97 94 Pulse Rate [Left R adial] Pulse Rate [Right Pulse Oximeter] Respiratory Rate Blood Pressure [Ri ght Arm] Blood Pressure [Ri ght Upper Arm] Pulse Oximetry 93 95 95 Oxygen Delivery Me thod 02/20/24 21:31 02/20/24 21:41 02/20/24 22:18 Temperature 98.5 F 98.5 F Pulse Rate Pulse Rate [Left R adial] 100 100 Pulse Rate [Right Pulse Oximeter] Respiratory Rate 16 16 16 Blood Pressure [Ri ght Arm] 148/72 H 148/72 H Blood Pressure [Ri ght Upper Arm] Pulse Oximetry 93 93 93 [facility] Room Air Room Air 02/20/24 22:18 02/20/24 22:20 02/20/24 23:10 Temperature 98.5 F Pulse Rate Pulse Rate [Left R adial] 100 100 Pulse Rate [Right Pulse Oximeter] Respiratory Rate 16 16 Blood Pressure [Ri ght Arm] 148/72 H Blood Pressure [Ri ght Upper Arm] Pulse Oximetry 93 93 Oxygen Delivery Me od Room Air 02/21/24 03:00 02/21/24 07:00 02/21/24 07:00 Temperature 98.5 F Pulse Rate Pulse Rate [Left R adial] 93 97 Pulse Rate [Right Pulse Oximeter] Respiratory Rate 16 16 16 Blood Pressure [Ri ght Arm] 142/74 H Blood Pressure [Ri ght Upper Arm] Pulse Oximetry 93 92 Oxygen Delivery Me od Room Air Room Air 02/21/24 07:00 Temperature 98.0 F Pulse Rate Pulse Rate [Left R adial] 97 Pulse Rate [Right Pulse Oximeter] Respiratory Rate 16 Blood Pressure [Ri ght Arm] 150/84 H Blood Pressure [Ri ght Upper Arm] Pulse Oximetry 92 Oxygen Delivery [facility] Room Air Labs Labs: Laboratory Results - last 24 hr 02/20/24 02/20/24 02/21/24 17:05 18:02 06:00 WBC 9.16 6.67 RBC 4.66 4.60 Hgb 12.8 12.6 Hct 36.7 36.9 MCV 79 L 80 MCH 28 27 MCHC 35 34 RDW Coeff of Mark 13.7 13.9 Plt Count 239 213 Neut % (Auto) 69.2 52.2 Lymph % (Auto) 11.5 L 15.1 L Davison % (Auto) 18.3 H 31.9 H Eos % (Auto) 0.1 0.1 Baso % (Auto) 0.0 0.1 Neut # (Auto) 6.34 3.47 Lymph # (Auto) 1.10 1.00 Davison # (Auto) 1.70 H 2.10 H Eos # (Auto) 0.01 0.01 Baso # (Auto) 0.00 0.01 Abs Immat Gran (auto) 0.08 0.04 Imm/Tot Granulo (auto) 0.9 0.6 Sodium 130 L 132 L Potassium 4.4 3.8 Chloride 99 99 Carbon Dioxide 20 24 Anion Gap 11 9 BUN 15 16 Creatinine 0.8 0.9 Estimated Creat Clear 41.05 36.08 Estimated GFR 75 65 Glucose 107 96 Lactate 0.7 Calcium 9.4 8.9 Total Bilirubin 1.5 2.0 H Direct Bilirubin 0.4 0.4 GGT 69 H 62 H AST 27 24 ALT 23 20 Alkaline Phosphatase 84 79 Troponin I < 0.01 L C-Reactive Protein 5.5 H 13.2 H Total Protein 8.1 7.6 Albumin 4.6 4.3 Lipase 58 50 Urine Color Yellow Urine Appearance Clear Urine pH 7.0 Ur Specific [place] 1.015 Urine Protein Negative Urine Glucose (UA) Negative Urine Ketones Trace A Urine Blood Negative Urine Nitrite Negative Urine Bilirubin Negative Urine Urobilinogen 1.0 Ur Leukocyte Esterase Negative Urine RBC 0-2 Urine WBC 0-2 Ur Squamous Epith Cells None Urine Bacteria None Lab Acknowledgement 02/21/24 02/21/24 08:19 09:23 WBC RBC Hgb Hct MCV MCH MCHC RDW Coeff of Mark Plt Count Neut % (Auto) Lymph % (Auto) Davison % (Auto) Eos % (Auto) Baso % (Auto) Neut # (Auto) Lymph # (Auto) Davison # (Auto) Eos # (Auto) Baso # (Auto) Abs Immat Gran (auto) Imm/Tot Granulo (auto) Sodium Potassium Chloride Carbon Dioxide Anion Gap BUN Creatinine Estimated Creat Clear Estimated GFR Glucose Lactate Calcium Total Bilirubin Direct Bilirubin GGT AST ALT Alkaline Phosphatase Troponin I C-Reactive Protein Total Protein Albumin Lipase Urine Color Urine Appearance Urine pH Ur Specific [place] Urine Protein Urine Glucose (UA) Urine Ketones Urine Blood Urine Nitrite Urine Bilirubin Urine Urobilinogen Ur Leukocyte Esterase Urine RBC Urine WBC Ur Squamous Epith Cells Urine Bacteria Lab Acknowledgement Test Added Test Added
--- NOTE | 2024-02-21 10:29 | PC.SOCIAL ---
Received a phone call from Court in admissions at [facility] ([phone]) informing that pt is on a bed hold. Pt has [employer] insurance and [employer] is requiring a prior auth before pt can return to [place]. Provided update to charge nurse. Social work will follow up as needed.
[2024-02-21] MEDS: LACTATED RINGERS 1000 ML 1,000 ML 75 ML IV (14:54)
--- NOTE | 2024-02-21 18:53 | PC.NURSE ---
End of shift: Patient alert and oriented, pleasant and coopertative. IV in Left AC patent, LR@75mls/hr. Patient c/o right sided Abd pain. No Surgery at this time per MD Chamorro. Pt is NPO. Ax2 pivot to bedside commode. Pt weak on left side due to CVA 1 month ago. Pt refuses SCDs and TEDs due to bruising and soreness of LEs. at bedside throughout the shift. Patient requests manual BP to be taken on right arm. Patient denies N/V. C/O left shoulder pain, heat pack brought in by Fabricio used per patient request.
[2024-02-21] MEDS: ENOXAPARIN 40 MG/0.4 ML INJ SUBCUT (20:11)
[2024-02-21] MEDS: BACLOFEN 10 MG TABLET 5 MG PO (20:12)
[2024-02-21] MEDS: MELATONIN 3 MG TABLET PO (20:13)
[2024-02-22] MEDS: ONDANSETRON 2 MG/ML inj 4 MG IVP (01:32)
[2024-02-22 01:38] VITALS: BP 134/74; PULSE 91; RESP 16; TEMP 37.1; O2SAT 94
[2024-02-22] MEDS: HYDROmorphone 0.5 mg/0.5 ml inj IVP (02:42)
[2024-02-22] MEDS: PIPERACILLIN/TAZOBACTAM 3.375 GM in 0.9 % SODIUM CHLORIDE Mini-bag 100 ML IVPB ×4 (02:45→21:06)
[2024-02-22] MEDS: LACTATED RINGERS 1000 ML 1,000 ML 75 ML IV ×2 (02:46→18:49)
--- NOTE | 2024-02-22 06:06 | PC.NURSE ---
Pt A2 to bedside commode. Pt has two loose large stools overnight. Reports Abdominal pain is zero with intermittent spasms of 3/10 rating. Pt anxious. Left sided weakness from previous CVA.
[2024-02-22 07:00] VITALS: BP 150/82; PULSE 92; RESP 16; TEMP 37.1; O2SAT 93
[2024-02-22 07:20] LABS: HCO3 VBG 21 mmol/L (21-28); PCO2 VBG 37 mmHG (40-50); PO2 VBG 40.9 mmHG (25-47); pH VBG 7.361 (7.32-7.43)
[2024-02-22 07:34] LABS: Basophils Absolute Auto 0.01 K/uL (0.00-0.30); Basophils Percent Auto 0.2 % (0.0-3.0); Eosinophils Absolute Auto 0.02 K/uL (0.00-0.50); Eosinophils Percent Auto 0.3 % (0.0-7.0); Hematocrit 32.8 % (33.0-51.0); Hemoglobin* 11.2 gm/dL (12.0-16.0); Immature Granulocytes Abs Auto 0.05 K/uL (0.00-0.30); Immature Granulocytes Pct Auto 0.8 %; Lymphocytes Absolute Auto 1.45 K/uL (0.90-2.90); Lymphocytes Percent Auto 22.3 % (20-44); Mean Corpuscular HGB Conc 34 gm/dL (32-36); Mean Corpuscular Hemoglobin 28 pg (26-34); Mean Corpuscular Volume 81 fL (80-100); Monocytes Percent Auto 29.4 % (0.0-11.0); Neutrophils Absolute Auto 3.06 K/uL (1.7-7.0); Platelet Count* 203 K/uL (140-440); RDW Coefficient of Variation % 13.5 % (11.5-15.5); Red Blood Count 4.06 m/uL (4.00-5.20)
[2024-02-22 07:41] LABS: Slide Review Reflex No
[2024-02-22 07:45] LABS: Albumin* 3.7 g/dL (3.3-5.0); Chloride* 105 mmol/L (96-114); Sodium* 134 mmol/L (135-149)
[2024-02-22 07:46] LABS: Potassium* 3.9 mmol/L (3.6-5.1)
[2024-02-22 07:47] LABS: Creatinine* 0.8 mg/dL (0.5-1.5); Est. Creatinine Clearance* 36.08; Estimated Glomerular Filt Rate 75 ml/min
[2024-02-22 07:48] LABS: Alanine Aminotransferase* 24 U/L (4-35); Alkaline Phosphatase* 94 U/L (40-150); Anion Gap 7 mEq/L (7-15); Aspartate Amino Transferase* 34 U/L (12-35); Bilirubin Direct* 0.3 mg/dL (0.0-0.5); Bilirubin Total* 1.8 mg/dL (0.1-1.5); Blood Urea Nitrogen* 15 mg/dL (7-30); Carbon Dioxide* 22 mmol/L (20-32); Gamma Glutamyl Transpeptidase* 90 U/L (8-55); Glucose* 85 mg/dL (60-115); Phosphorus* 3.7 mg/dL (2.5-4.5); Total Protein* 7.1 g/dL (6.0-8.3)
[2024-02-22 07:49] LABS: Calcium* 8.2 mg/dL (8.4-10.6)
[2024-02-22 08:08] LABS: C Reactive Protein* 16.3 mg/dL (0.5-1.0)
[2024-02-22] MEDS: ASPIRIN 81 MG TAB.CHEW PO (08:40)
[2024-02-22] MEDS: ROSUVASTATIN CALCIUM 10 MG TABLET 40 MG PO (08:40)
[2024-02-22] MEDS: AMLODIPINE 10 MG TABLET PO (08:40)
[2024-02-22] MEDS: lisinopriL 20 MG TABLET 40 MG PO (08:40)
[2024-02-22] MEDS: SPIRONOLACTONE 25 MG TABLET PO (08:41)
[2024-02-22] MEDS: SODIUM CHLORIDE 0.9 % (FLUSH) 10 ML SYRINGE 5 ML IVF (08:41)
--- NOTE | 2024-02-22 10:26 | PM.IMPN1 ---
Progress Note: A&P Assessment and plan (1) Cholecystitis: Problem details: - acute, with cholelithiasis - I spoke with Dr. Chamorro from general surgery who noted that surgery within 3 months of a stroke is not recommended due to increased risk of adverse events such as worsening stroke symptoms or recurrent stroke. She recommends medical management with IV antibiotics and, if not improving or if worse, transfer for cholecystostomy tube. - Admit for treatment with IV zosyn. Start IVF. Start clears, continue home medications. Monitor LFTs. -If clears go well - go to liquid diet and advance as tolerated. we can consider d/c on oral abx and close f/u in the next 2 days or so. Status: Acute (2) History of ischemic multifocal multiple vascular territories stroke: Problem details: 01/19/24 Left arm and leg weakness due to right powell radiata stroke. Presented beyond the time frame for intravascular intervention or thrombolytics. No large vessel occlusion on MRA. No obvious atrial fibrillation though patient declined telemetry. No obvious embolic source on echo though possible PFO. Significant ongoing left hand and foot weakness. Stroke rehab at SNF. Tx with ASA and PLAVIX. Held Plavix as of 02/20 (needed three weeks only post stroke) 05/02/2021 hospitalized for stroke involving posterior limb of the left internal capsule. Started on amlodipine, lisinopril, aspirin, and statin but patient quit shortly after starting due to side effects. Good recovery afterwards. Status: Acute (3) Hypertension: Problem details: Lisinopril 10 mg started January 20. Amlodipine 5 mg started January 21. Spironolactone started January 23. Three years ago had evaluation for hyper aldosteronism which was unremarkable. 02/20/24 CT abd/pelvis: Stenosis at the origin of the right renal artery. Recommend routine outpatient CT angiogram of the abdomen to adequately characterize. - Continue home medications. Status: Chronic Subjective Date Seen: 02/22/24 Interval history: Daily Progress Note - Hospital Medicine Day #: 3 CC: Acute cholecystitis, recent stroke. OVERNIGHT UPDATES FROM STAFF & MED, LAB, IMAGING UPDATES Patient did have some increase in pain with clears mid day yesterday (after rounds) - we went back to NPO. She had a good night. only has had two opioid doses since arrival to the floor. feels better today. -she is receiving Zosyn. -she continues aspirin 81 mg for her right-sided powell radiata posterior limb internal capsule stroke from December. (>3 weeks of plavix - HOLDING as of 02/20) -her last dose of hydromorphone was at 02:42 a.m.. -she remains on LR at 75 mL an hour Objective: more alert; bright Vitals: reviewed. no fever. no evidence of sepsis. abdomen: soft. some mild tenderness. Lungs: Clear. Cardiac: S1S2. CBC demonstrates a normal white blood cell count. Her hemoglobin downtrended to 11.2, her platelets are normal at 213. Her hyponatremia is improving as she is up to 134. Her baseline appears to be 137-140 Normal electrolytes. Normal renal function. Her bilirubin is 1.8 (down from 2.0), normal direct. Her GGT is down trending 69-->62-->90. Her LFTs are normal. Her troponin was normal on admission. Her CRP has jumped from 5.5-->13.2-->16.3. Her lipase is normal. Right upper quadrant ultrasound is reviewed. Cholelithiasis with gallbladder wall thickening and sonographic tenderness concerning for developing acute cholecystitis. -urine culture reveals a pansensitive ECOLI Disposition/Potential discharge - Likely to return to previous living situation. Today I spent 50minutes seeing the patient, reviewing Expanse and EPIC notes/diagnostics, discussing the care plan with our care time that includes social work, PT/OT, pharmacy, RT, usp and documenting my impressions and plan in the medical record. Exam Const: Vital Signs, click to edit/add: Vital Signs - 24 hr 02/21/24 11:00 02/21/24 14:58 02/21/24 14:58 Temperature 98.0 F Pulse Rate [Left R adial] 87 89 Respiratory Rate 16 16 16 Blood Pressure [Ri ght Arm] 122/70 Pulse Oximetry 93 91 Oxygen Delivery Me thod Room Air Room Air 02/21/24 14:58 02/21/24 19:24 02/21/24 21:57 Temperature 98.0 F 98.9 F 97.4 F L Pulse Rate [Left R adial] 89 88 104 H Respiratory Rate 16 16 16 Blood Pressure [Ri ght Arm] 146/86 H 150/80 H 123/72 Pulse Oximetry 91 91 91 Oxygen Delivery Me thod Room Air Room Air Room Air 02/21/24 22:04 02/21/24 22:06 02/21/24 22:07 Temperature Pulse Rate [Left R adial] 88 Respiratory Rate 16 16 Blood Pressure [Ri ght Arm] Pulse Oximetry 91 91 Oxygen Delivery Me thod Room Air 02/21/24 22:08 02/22/24 01:38 02/22/24 07:00 Temperature 98.6 F 98.7 F Pulse Rate [Left R adial] 88 91 92 Respiratory Rate 16 16 16 Blood Pressure [Ri ght Arm] 148/78 H 134/74 Pulse Oximetry 92 94 Oxygen Delivery Me thod Room Air Room Air 02/22/24 07:00 02/22/24 07:00 Temperature 98.7 F Pulse Rate [Left R adial] 92 Respiratory Rate 16 16 Blood Pressure [Ri ght Arm] 150/82 H Pulse Oximetry 93 93 Oxygen Delivery Me thod Room Air Room Air Labs Labs: Laboratory Results - last 24 hr 02/22/24 07:10 WBC 6.50 RBC 4.06 Hgb 11.2 L Hct 32.8 L MCV 81 MCH 28 MCHC 34 RDW Coeff of Mark 13.5 Plt Count 203 Neut % (Auto) 47.0 Lymph % (Auto) 22.3 [place] % (Auto) 29.4 H Eos % (Auto) 0.3 Baso % (Auto) 0.2 Neut # (Auto) 3.06 Lymph # (Auto) 1.45 [place] # (Auto) 1.90 H Eos # (Auto) 0.02 Baso # (Auto) 0.01 Abs Immat Gran (auto) 0.05 Imm/Tot Granulo (auto) 0.8 VBG pH 7.361 VBG pCO2 37 L VBG pO2 40.9 VBG HCO3 21 Sodium 134 L Potassium 3.9 Chloride 105 Carbon Dioxide 22 Anion Gap 7 BUN 15 Creatinine 0.8 Estimated Creat Clear 36.08 Estimated GFR 75 Glucose 85 Calcium 8.2 L Ionized Calcium Ramya 1.10 L Phosphorus 3.7 Total Bilirubin 1.8 H Direct Bilirubin 0.3 GGT 90 H AST 34 ALT 24 Alkaline Phosphatase 94 C-Reactive Protein 16.3 H Total Protein 7.1 Albumin 3.7
[2024-02-22 11:00] VITALS: BP 120/74; PULSE 92; RESP 16; TEMP 37.1; O2SAT 93
--- NOTE | 2024-02-22 12:06 | PM.GSPN ---
Subjective Subjective Date Seen: 02/22/24 Interval history: Marjan feels better today. She has moved her bowels. She is afebrile. She says that her pain has improved. She is still somewhat tender but it is in a much smaller area. She would like to try clear liquids again. Exam Narrative: Exam Narrative: General: No acute distress Abdomen: Mildly protuberant. She is tender in the right upper quadrant with palpation, however this fairly focal and is improved from yesterday. Const: Vital Signs, click to edit/add: Vital Signs - 24 hr 02/21/24 14:58 02/21/24 14:58 02/21/24 14:58 Temperature 98.0 F Pulse Rate [Left R adial] 89 89 Respiratory Rate 16 16 16 Blood Pressure [Ri ght Arm] 146/86 H Pulse Oximetry 91 91 Oxygen Delivery Me thod Room Air Room Air 02/21/24 19:24 02/21/24 21:57 02/21/24 22:04 Temperature 98.9 F 97.4 F L Pulse Rate [Left R adial] 88 104 H 88 Respiratory Rate 16 16 16 Blood Pressure [Ri ght Arm] 150/80 H 123/72 Pulse Oximetry 91 91 Oxygen Delivery Me thod Room Air Room Air 02/21/24 22:06 02/21/24 22:07 02/21/24 22:08 Temperature 98.6 F Pulse Rate [Left R adial] 88 Respiratory Rate 16 16 Blood Pressure [Ri ght Arm] 148/78 H Pulse Oximetry 91 91 92 Oxygen Delivery Me thod Room Air Room Air 02/22/24 01:38 02/22/24 07:00 02/22/24 07:00 Temperature 98.7 F Pulse Rate [Left R adial] 91 92 Respiratory Rate 16 16 16 Blood Pressure [Ri ght Arm] 134/74 Pulse Oximetry 94 93 Oxygen Delivery Me thod Room Air Room Air 02/22/24 07:00 02/22/24 11:00 Temperature 98.7 F 98.7 F Pulse Rate [Left R adial] 92 92 Respiratory Rate 16 16 Blood Pressure [Ri ght Arm] 150/82 H 120/74 Pulse Oximetry 93 93 Oxygen Delivery Me thod Room Air Room Air Labs/Imaging Labs Labs: White blood cell count remains normal. CRP is up slightly to 16 from 13. Total bilirubin is down slightly to 1.8 from 2.0. This remains an indirect hyperbilirubinemia. Progress Note:A&P Assessment and plan (1) Cholecystitis: Status: Acute (2) History of ischemic multifocal multiple vascular territories stroke: Status: Acute Plan The patient is a 78-year-old female with acute cholecystitis in the setting of a recent ischemic stroke. At this point I recommend continued conservative management as she appears to be improving. I updated the patient and her today. -I would recommend clear liquids today. As long as this goes okay we can consider advancing diet tomorrow. -per last admission notes, Plavix only necessary for 3 weeks. Would continue to hold this. -if patient worsens clinically I would consider cholecystostomy tube rather than cholecystectomy at this time. -continue IV antibiotics, duration dependent on clinical course. -anticipate patient will likely be in patient through the weekend as she will need to be pain free and to advance to a regular diet prior to discharge and tomorrow is Monday.
--- NOTE | 2024-02-22 14:27 | PC.NURSE ---
End of shift: Patient alert and oriented, pleasant and coopertative. IV in Left AC patent, LR@75mls/hr. Patient c/o right sided Abd pain that comes on intermittently, tolerating clear liquid diet today and reports no pain with clears. Pt is Ax2 pivot to bedside commode. Pt weak on left side due to CVA 1 month ago. Pt refuses SCDs and TEDs due to bruising and soreness of LEs. at bedside throughout the shift. Patient requests manual BP to be taken on right arm. Patient denies N/V.
--- NOTE | 2024-02-22 14:52 | PM.DS1 ---
DS: Providers Provider Date of admission: 02/20/24 23:29 Primary care physician: Not a Local Provider Admitting Clinician: Indiana Manuel MD Consults: 02/22/24 14:15 Consult to Occupational Therapy [CONS] Routine Comment: Reason(s) for OT Consult:: Evaluate and Treat Any Restrictions?:: No Restrictions Consult to Physical Therapy [CONS] Routine Comment: Reason(s) for PT Consult:: Evaluate and Treat Any Restrictions?:: No Restrictions Attending Physician on discharge: Indiana Manuel MD DS: Summary Time Spent with Patient Time attestation: Total time spent providing and/or coordinating discharge services: Exam Const: Vital Signs, click to edit/add: Vital Signs - 24 hr 02/21/24 14:58 02/21/24 14:58 02/21/24 14:58 Temperature 98.0 F Pulse Rate [Left R adial] 89 89 Respiratory Rate 16 16 16 Blood Pressure [Ri ght Arm] 146/86 H Pulse Oximetry 91 91 Oxygen Delivery Me thod Room Air Room Air 02/21/24 19:24 02/21/24 21:57 02/21/24 22:04 Temperature 98.9 F 97.4 F L Pulse Rate [Left R adial] 88 104 H 88 Respiratory Rate 16 16 16 Blood Pressure [Ri ght Arm] 150/80 H 123/72 Pulse Oximetry 91 91 Oxygen Delivery Me thod Room Air Room Air 02/21/24 22:06 02/21/24 22:07 02/21/24 22:08 Temperature 98.6 F Pulse Rate [Left R adial] 88 Respiratory Rate 16 16 Blood Pressure [Ri ght Arm] 148/78 H Pulse Oximetry 91 91 92 Oxygen Delivery Me thod Room Air Room Air 02/22/24 01:38 02/22/24 07:00 02/22/24 07:00 Temperature 98.7 F Pulse Rate [Left R adial] 91 92 Respiratory Rate 16 16 16 Blood Pressure [Ri ght Arm] 134/74 Pulse Oximetry 94 93 Oxygen Delivery Me thod Room Air Room Air 02/22/24 07:00 02/22/24 11:00 Temperature 98.7 F 98.7 F Pulse Rate [Left R adial] 92 92 Respiratory Rate 16 16 Blood Pressure [Ri ght Arm] 150/82 H 120/74 Pulse Oximetry 93 93 Oxygen Delivery Me thod Room Air Room Air DS: Data Data Completed and Pending Labs on day of discharge: Labs from last 24 hours 02/22/24 07:10 WBC 6.50 RBC 4.06 Hgb 11.2 L Hct 32.8 L MCV 81 MCH 28 MCHC 34 RDW Coeff of Mark 13.5 Plt Count 203 Neut % (Auto) 47.0 Lymph % (Auto) 22.3 [place] % (Auto) 29.4 H Eos % (Auto) 0.3 Baso % (Auto) 0.2 Neut # (Auto) 3.06 Lymph # (Auto) 1.45 [place] # (Auto) 1.90 H Eos # (Auto) 0.02 Baso # (Auto) 0.01 Abs Immat Gran (auto) 0.05 Imm/Tot Granulo (auto) 0.8 VBG pH 7.361 VBG pCO2 37 L VBG pO2 40.9 VBG HCO3 21 Sodium 134 L Potassium 3.9 Chloride 105 Carbon Dioxide 22 Anion Gap 7 BUN 15 Creatinine 0.8 Estimated Creat Clear 36.08 Estimated GFR 75 Glucose 85 Calcium 8.2 L Ionized Calcium Ramya 1.10 L Phosphorus 3.7 Total Bilirubin 1.8 H Direct Bilirubin 0.3 GGT 90 H AST 34 ALT 24 Alkaline Phosphatase 94 C-Reactive Protein 16.3 H Total Protein 7.1 Albumin 3.7 Discharge Plan Discharge Date of Admission: 02/20/24 23:29 Attending Physician on Admission: Indiana Manuel Primary Care Provider: Provider,Not a Local Condition: Unchanged Discharge Medications: No Action oxycodone 5 mg tablet 5 mg PO Q4H PRN (Reason: pain) cyclobenzaprine 5 mg tablet PO amlodipine 10 mg tablet 10 mg PO DAILY lisinopril 40 mg tablet 40 mg PO DAILY baclofen 5 mg tablet 5 mg PO 3XD PRN (Reason: muscle spasm) clopidogrel 75 mg Tablet 75 mg PO DAILY Qty: 20 0RF aspirin [Children's Aspirin] 81 mg Tablet,Chewable 81 mg PO DAILY Qty: 100 0RF rosuvastatin 40 mg tablet 40 mg PO DAILY Qty: 30 0RF spironolactone 25 mg tablet 25 mg PO DAILY Qty: 30 0RF Follow Up Appointments: Provider,Not a Local [Primary Care Provider] -
[2024-02-22 15:00] VITALS: BP 138/64; PULSE 88; RESP 16; TEMP 36.9; O2SAT 94
--- NOTE | 2024-02-22 17:03 | PC.SOCIAL ---
Discharge planning: Called and secure emailed updated information to Court in admissions at [facility]. Court to apply for insurance prior authorization from [facility] as this is needed for pt to return to her bed which is currently on hold at [facility]. interior surface insulation worker to follow up as needed when discharge date is determined.
[2024-02-22 19:00] VITALS: BP 150/72; PULSE 92; RESP 18; TEMP 37.1; O2SAT 94
[2024-02-22] MEDS: ENOXAPARIN 40 MG/0.4 ML INJ SUBCUT (21:06)
--- NOTE | 2024-02-22 22:18 | PC.NURSE ---
End of Shift: Patient pleasant and cooperative. Afebrile. Denies pain throughout shift. Tolerating clear liquids. Denies nausea. Up to chair and bathroom with 1 assist, walker and gait belt.
[2024-02-22 23:00] VITALS: BP 140/70; PULSE 89; RESP 18; TEMP 36.9; O2SAT 93
[2024-02-23] VITALS (9 sets, daily range): BP systolic 133–150; BP diastolic 45–70; PULSE 86–105; RESP 16–18; TEMP 36.4–37.1; O2SAT 92–98
[2024-02-23] MEDS: PIPERACILLIN/TAZOBACTAM 3.375 GM in 0.9 % SODIUM CHLORIDE Mini-bag 100 ML IVPB ×4 (02:45→22:40)
--- NOTE | 2024-02-23 04:51 | PC.NURSE ---
Patient pleasant, alert and oriented. Transferred to bedside commode with walker and?assist of one. Used call light appropriately. Reported gallbladder pain with movement; no pain with rest. Declined PRN pain medications and interventions when offered reporting that she did not need it. Educated patient to let us know if she changes her mind.?
[2024-02-23 07:00] LABS: Eosinophils Absolute Auto 0.02 K/uL (0.00-0.50); Eosinophils Percent Auto 0.3 % (0.0-7.0); Hematocrit 33.9 % (33.0-51.0); Hemoglobin* 11.5 gm/dL (12.0-16.0); Immature Granulocytes Abs Auto 0.05 K/uL (0.00-0.30); Immature Granulocytes Pct Auto 0.9 %; Lymphocytes Absolute Auto 1.59 K/uL (0.90-2.90); Lymphocytes Percent Auto 27.4 % (20-44); Mean Corpuscular HGB Conc 34 gm/dL (32-36); Mean Corpuscular Hemoglobin 27 pg (26-34); Mean Corpuscular Volume 80 fL (80-100); Monocytes Percent Auto 19.8 % (0.0-11.0); Neutrophils Absolute Auto 2.99 K/uL (1.7-7.0); Neutrophils Percent Auto 51.6 % (42.0-72.0); Platelet Count* 208 K/uL (140-440); RDW Coefficient of Variation % 13.5 % (11.5-15.5); Red Blood Count 4.23 m/uL (4.00-5.20)
[2024-02-23 07:06] LABS: Slide Review Reflex No
[2024-02-23 07:12] LABS: Chloride* 106 mmol/L (96-114)
[2024-02-23 07:13] LABS: Potassium* 3.6 mmol/L (3.6-5.1); Sodium* 136 mmol/L (135-149)
[2024-02-23 07:15] LABS: Creatinine* 0.7 mg/dL (0.5-1.5); Est. Creatinine Clearance* 36.08; Estimated Glomerular Filt Rate 88 ml/min
[2024-02-23 07:16] LABS: Alanine Aminotransferase* 22 U/L (4-35); Alkaline Phosphatase* 91 U/L (40-150); Anion Gap 11 mEq/L (7-15); Aspartate Amino Transferase* 27 U/L (12-35); Bilirubin Direct* 0.4 mg/dL (0.0-0.5); Bilirubin Total* 1.5 mg/dL (0.1-1.5); Blood Urea Nitrogen* 11 mg/dL (7-30); Calcium* 8.4 mg/dL (8.4-10.6); Carbon Dioxide* 19 mmol/L (20-32); Gamma Glutamyl Transpeptidase* 76 U/L (8-55); Glucose* 90 mg/dL (60-115); Total Protein* 7.3 g/dL (6.0-8.3)
[2024-02-23] MEDS: lisinopriL 20 MG TABLET 40 MG PO (09:29)
[2024-02-23] MEDS: ROSUVASTATIN CALCIUM 10 MG TABLET 40 MG PO (09:29)
[2024-02-23] MEDS: AMLODIPINE 10 MG TABLET PO (09:29)
[2024-02-23] MEDS: ASPIRIN 81 MG TAB.CHEW PO (09:29)
[2024-02-23] MEDS: SODIUM CHLORIDE 0.9 % (FLUSH) 10 ML SYRINGE 5 ML IVF ×2 (09:30→21:55)
[2024-02-23] MEDS: SPIRONOLACTONE 25 MG TABLET PO (09:30)
--- NOTE | 2024-02-23 09:42 | P.IMPN_ITS ---
Progress Note: A&P Assessment and plan (1) Cholecystitis: Problem details: - acute, with cholelithiasis - conservative care w/o lap abhishek due to <3 months from major stroke. IV ABX until eating and moving well without pain. gen surg following daily. - CRP downtrending. LFTS are normal. - advancing diet as tolerated - hopefully discharge in the next 1-2 days Status: Acute (2) History of ischemic multifocal multiple vascular territories stroke: Problem details: -currently at [facility] for stroke rehab - left sided hemiparesis. Hopes to be able to return to home with . 01/19/24 Left arm and leg weakness due to right powell radiata stroke. Presented beyond the time frame for intravascular intervention or thrombolytics. No large vessel occlusion on MRA. No obvious atrial fibrillation though patient declined telemetry. No obvious embolic source on echo though possible PFO. Significant ongoing left hand and foot weakness. Stroke rehab at [facility]. Tx with ASA and PLAVIX. Held Plavix as of 02/20 (needed three weeks only post stroke) 05/02/2021 hospitalized for stroke involving posterior limb of the left internal capsule. Started on amlodipine, lisinopril, aspirin, and statin but patient quit shortly after starting due to side effects. Good recovery afterwards. Status: Acute (3) E-coli UTI: Problem details: pansensitive ecoli. covered by current zosyn therapy for acute abhishek. Status: Acute (4) Hypertension: Problem details: Lisinopril 10 mg started January 20. Amlodipine 5 mg started January 21. Spironolactone started January 23. Three years ago had evaluation for hyper aldosteronism which was unremarkable. 02/20/24 CT abd/pelvis: Stenosis at the origin of the right renal artery. Recommend routine outpatient CT angiogram of the abdomen to adequately characterize. - Continue home medications. Status: Chronic (5) Renal artery stenosis: Problem details: OUTPATIENT FOLLOW UP 02/20/24 CT abd/pelvis: Stenosis at the origin of the right renal artery. Recommend routine outpatient CT angiogram of the abdomen to adequately characterize. Status: Acute (6) Breast nodule: Problem details: OUTPATIENT FOLLOW-UP - 02/20/24 CT abd/pelvis: 12 millimeter asymmetric soft tissue density within the left retroareolar breast is nonspecific, with differential diagnosis to include malignancy. Recommend correlation with physical examination and updated mammogram Status: Acute (7) Mixed hyperlipidemia: Problem details: high-dose rosuvastatin Status: Chronic Subjective Date Seen: 02/23/24 Interval history: Daily Progress Note - Hospital Medicine #: 4 CC: Acute cholecystitis, recent stroke. OVERNIGHT UPDATES FROM STAFF & MED, LAB, IMAGING UPDATES patient continues to improve. I held the IV pain medication and ordered oral oxycodone. She did not need any opioids overnight. She is eating an advanced diet this morning (hard boiled egg, pudding, water) ... so far no issues. RN reports multiple incontinent loose stools. will check CDIFF and ordered one time order of imodium. will add probiotic as well. patient tells me prior to the onset of acute cholecystitis -- she had right sided chest wall and abdominal wall pain from gripping, rolling and having to depend on her right side b/c of the effects of her December stroke affecting her left side. She continues (when transfering/moving) of having this pain. -she is receiving Zosyn. -she continues aspirin 81 mg for her right-sided powell radiata posterior limb internal capsule stroke from December. (>3 weeks of plavix - HOLDING as of 02/20) -she remains on LR at 75 mL an hour Objective: more alert; bright Vitals: reviewed. no fever. no evidence of sepsis. abdomen: soft. some mild tenderness. Lungs: Clear. Cardiac: S1S2. CBC demonstrates a normal white blood cell count. Her hemoglobin downtrended to 11.2, her platelets are normal at 213. Her hyponatremia is improving as she is up to 134. Her baseline appears to be 137-140 Normal electrolytes. Normal renal function. Her bilirubin is 1.8 (down from 2.0), normal direct. Her GGT is down trending 69-->62-->90. Her LFTs are normal. Her troponin was normal on admission. Her CRP has jumped from 5.5-->13.2-->16.3. Her lipase is normal. Right upper quadrant ultrasound is reviewed. Cholelithiasis with gallbladder wall thickening and sonographic tenderness concerning for developing acute cholecystitis. -urine culture reveals a pansensitive ECOLI Disposition/Potential discharge - Likely to return to previous living situation. Today I spent 50minutes seeing the patient, reviewing Expanse and EPIC notes/diagnostics, discussing the care plan with our care time that includes social work, PT/OT, pharmacy, RT, mcfp and documenting my impressions and plan in the medical record. Exam Const: Vital Signs, click to edit/add: Vital Signs - 24 hr 02/22/24 11:00 02/22/24 15:00 02/22/24 15:00 Temperature 98.7 F 98.4 F Pulse Rate [Left R adial] 92 88 Pulse Rate [Pulse Oximeter] Respiratory Rate 16 16 Blood Pressure [Ri ght Arm] 120/74 138/64 Pulse Oximetry 93 94 94 Oxygen Delivery Me thod Room Air Room Air Room Air 02/22/24 15:00 02/22/24 19:00 02/22/24 23:00 Temperature 98.8 F 98.5 F Pulse Rate [Left R adial] 88 92 89 Pulse Rate [Pulse Oximeter] Respiratory Rate 16 18 18 Blood Pressure [Ri ght Arm] 150/72 H 140/70 H Pulse Oximetry 94 93 Oxygen Delivery Mo thod Room Air Room Air 02/22/24 23:00 02/22/24 23:00 02/23/24 02:24 Temperature Pulse Rate [Left R adial] Pulse Rate [Pulse Oximeter] 90 Respiratory Rate 18 16 Blood Pressure [Ri ght Arm] 146/70 H Pulse Oximetry 93 93 93 Oxygen Delivery Mo thod Room Air Room Air 02/23/24 09:27 02/23/24 09:27 Temperature 98.0 F Pulse Rate [Left R adial] Pulse Rate [Pulse Oximeter] 105 H Respiratory Rate 16 16 Blood Pressure [Ri ght Arm] 145/50 H Pulse Oximetry 97 98 Oxygen Delivery Me thod Room Air Room Air Labs Labs: Laboratory Results - last 24 hr 02/23/24 06:43 WBC 5.80 RBC 4.23 Hgb 11.5 L Hct 33.9 MCV 80 MCH 27 MCHC 34 RDW Coeff of Mark 13.5 Plt Count 208 Neut % (Auto) 51.6 Lymph % (Auto) 27.4 [place] % (Auto) 19.8 H Eos % (Auto) 0.3 Baso % (Auto) 0.0 Neut # (Auto) 2.99 Lymph # (Auto) 1.59 [place] # (Auto) 1.10 H Eos # (Auto) 0.02 Baso # (Auto) 0.00 Abs Immat Gran (auto) 0.05 Imm/Tot Granulo (auto) 0.9 Sodium 136 Potassium 3.6 Chloride 106 Carbon Dioxide 19 L Anion Gap 11 BUN 11 Creatinine 0.7 Estimated Creat Clear 36.08 Estimated GFR 88 Glucose 90 Calcium 8.4 Total Bilirubin 1.5 Direct Bilirubin 0.4 GGT 76 H AST 27 ALT 22 Alkaline Phosphatase 91 C-Reactive Protein 15.0 H Total Protein 7.3 Albumin 4.0
[2024-02-23] MEDS: LOPERAMIDE HCL 2 MG CAPSULE PO (12:00)
--- NOTE | 2024-02-23 15:43 | PC.SOCIAL ---
Addendum entered by EVELIN Medrano 02/23/24 16:37: Spoke with Court at [facility] who shared pt had been participating in discharge planning from [facility] to home prior to hospitalization. [facility] had sent MD orders for home care PT/OT and nurse aid to [facility] include [facility] beds at the [facility]. [facility] had also send MD order for a platform walker to [facility] for delivery to home. However, these arrangements were not followed through on because pt had been admitted to the hospital prior to discharge from [facility]. If pt decides to go home from the hospital at discharge instead of back to [facility], these agencies could be contacted to see if they are able to provide services for pt at home. It is possible that new orders from the hospital would be needed. insulation worker furnace installer to follow up as needed. Addendum entered by TALITA Encinas 02/23/24 16:29: Discharge planning: Both the pt and her stated to this worker that they did not feel like pt would be ready to go directly home after this hospital stay and wanted her to do some more rehab at [facility]. Social work to follow-up as needed. Original Note: Discharge planning: Pt has been on a bed hold at [facility]. Due to pt most likely being ready for discharge this weekend, it was decided for [facility] to submit the prior authorization to [facility] today in order for pt to be able to return over the weekend. By the afternoon today [facility] had not heard back from [facility] regarding the prior authorization. [facility] stated that the pt could come back to their facility over the weekend without the prior authorization approval; however, if on Monday [facility] did not approve the rehab stay, the pt and her would be financially responsible for the pt's bed and would need to private pay. The pt and her would need to give [facility] a $10,000.00 down payment and the daily cost for the pt's bed would be $650.00. Pt's stated that they would consider private paying for the bed at [facility], but wanted to know [facility]'s decision first. Pt's stated that he would like to appeal his 's hospital discharge, if it is decided that she will be ready for discharge over the weekend. insulation worker furnace installer explained the hospital discharge appeal process to the pt and her . Pt's has the needed Medicare appeal numbers. Social work to follow-up as needed.
[2024-02-23] MEDS: OXYCODONE 5 MG TABLET PO (16:05)
--- NOTE | 2024-02-23 16:16 | PM.GSPN ---
Subjective Subjective Date Seen: 02/23/24 Interval history: Marjan is feeling much better today. She tolerated clears without any issue. No fevers. She is moving her bowels. She states that she has no pain at rest. Exam Narrative: Exam Narrative: General: No acute distress Abdomen: Protuberant. Mildly tender in the right upper quadrant with palpation, however this has improved. Const: Vital Signs, click to edit/add: Vital Signs - 24 hr 02/22/24 19:00 02/22/24 23:00 02/22/24 23:00 Temperature 98.8 F 98.5 F Pulse Rate [Left R adial] 92 89 Pulse Rate [Pulse Oximeter] Respiratory Rate 18 18 Blood Pressure [Ri ght Arm] 150/72 H 140/70 H Pulse Oximetry 94 93 93 Oxygen Delivery Me thod Room Air Room Air 02/22/24 23:00 02/23/24 02:24 02/23/24 09:27 Temperature Pulse Rate [Left R adial] Pulse Rate [Pulse Oximeter] 90 Respiratory Rate 18 16 16 Blood Pressure [Ri ght Arm] 146/70 H Pulse Oximetry 93 93 97 Oxygen Delivery Me thod Room Air Room Air Room Air 02/23/24 09:27 02/23/24 15:28 02/23/24 16:06 Temperature 98.0 F 97.6 F 97.6 F Pulse Rate [Left R adial] Pulse Rate [Pulse Oximeter] 105 H 95 92 Respiratory Rate 16 16 16 Blood Pressure [Ri ght Arm] 145/50 H 140/45 H 150/45 H Pulse Oximetry 98 97 97 Oxygen Delivery Me thod Room Air Room Air Room Air Labs/Imaging Labs Labs: White blood cell count remains normal. CRP is down slightly today. Progress Note:A&P Assessment and plan (1) Cholecystitis: Status: Acute (2) History of ischemic multifocal multiple vascular territories stroke: Status: Acute (3) E-coli UTI: Status: Acute (4) Hypertension: Status: Chronic Plan The patient is a 78-year-old female with a recent ischemic stroke with left hemiparesis now with acute cholecystitis. Because of her recent stroke I recommended conservative management. Today she states that she has likely had this pain previously. She thought it was musculoskeletal. I discussed that as long as we can get her tolerating a diet without pain or nausea then it is best to wait until 90 days after her stroke. Certainly the risk of repeat ischemic event is highest in the 1st month. If she tolerates a regular diet today she could discharge home with 1 week of oral antibiotics. If she has persistent pain then she should remain inpatient on a clear liquid diet. She can follow-up in clinic in 1-2 weeks.
[2024-02-23] MEDS: LACTOBACILLUS ACIDOPHILUS 1 TABLET 1 TAB PO (18:09)
--- NOTE | 2024-02-23 18:39 | PC.NURSE ---
End of Shift: The patient is alert and orientated and pleasant with interactions. Some pressured and aphasic speech from prior stroke. L arm is severely weak with ataxia, LLE is moderately weak. This morning the patient reported no RUQ pain this morning. Later this afternoon the patient begin to report sharp RUQ pain with movement and deep breathing. I recommended that we proceed with pain medication... PRN oxycodone was given with adequate relief. The patient is most comfortable lying in bed due to her L shoulder/back getting sore in the recliner. The patient reports that she has gotten electrocuted before so we do manual BP on her R arm.. Hypertensive, although all other VSS on RA. The patient advanced to a regular diet today.. I recommended bland foods.. the patient has tolerated them well. The patient stated that she believes that her pain may have been aggravated by physical therapy. Call light within reach. Up Ax1 w/ GB and platform walker. Micki PÉREZ BSN
[2024-02-23] MEDS: ENOXAPARIN 40 MG/0.4 ML INJ SUBCUT (21:54)
[2024-02-24] VITALS (7 sets, daily range): BP systolic 130–160; BP diastolic 59–72; PULSE 85–100; RESP 16–20; TEMP 36.6–37.3; O2SAT 94–99
[2024-02-24] MEDS: PIPERACILLIN/TAZOBACTAM 3.375 GM in 0.9 % SODIUM CHLORIDE Mini-bag 100 ML IVPB ×4 (04:37→22:29)
--- NOTE | 2024-02-24 05:33 | PC.NURSE ---
Patient pleasant and cooperative with cares. Ambulating well with walker and?assist of one. Some hallucinations earlier during night after waking up however patient was aware they were not real. Had small?BM but unable to collect sample as was completely covered by urine in hat. Has denied pain during night.
[2024-02-24 07:06] LABS: Basophils Absolute Auto 0.01 K/uL (0.00-0.30); Basophils Percent Auto 0.2 % (0.0-3.0); Eosinophils Absolute Auto 0.02 K/uL (0.00-0.50); Eosinophils Percent Auto 0.4 % (0.0-7.0); Hematocrit 30.5 % (33.0-51.0); Hemoglobin* 10.4 gm/dL (12.0-16.0); Immature Granulocytes Abs Auto 0.04 K/uL (0.00-0.30); Immature Granulocytes Pct Auto 0.8 %; Lymphocytes Absolute Auto 1.55 K/uL (0.90-2.90); Lymphocytes Percent Auto 30.2 % (20-44); Mean Corpuscular HGB Conc 34 gm/dL (32-36); Mean Corpuscular Hemoglobin 27 pg (26-34); Mean Corpuscular Volume 81 fL (80-100); Monocytes Percent Auto 25.3 % (0.0-11.0); Neutrophils Absolute Auto 2.21 K/uL (1.7-7.0); Neutrophils Percent Auto 43.1 % (42.0-72.0); Platelet Count* 208 K/uL (140-440); RDW Coefficient of Variation % 13.8 % (11.5-15.5); Red Blood Count 3.79 m/uL (4.00-5.20); White Blood Count* 5.13 K/uL (4.50-11.00)
[2024-02-24 07:10] LABS: Slide Review Reflex No
--- NOTE | 2024-02-24 07:18 | PC.NURSE ---
Patient pleasant and cooperative with cares. Ambulating well with walker and?assist of one. Some hallucinations earlier during night after waking up however patient was aware they were not real. Per patient hallucinations are not new for her, but she reports they were worse than usual. Patient self transferred x2 last night. When staff arrived she reported that she had to go to the bathroom. Staff reminded pt to use call light when she wants to get up. She was easily redirected. Had small?BM but unable to collect sample as was completely covered by urine in hat. Has denied pain during night and had no signs of discomfort.
[2024-02-24 07:28] LABS: Albumin* 3.7 g/dL (3.3-5.0); Chloride* 106 mmol/L (96-114)
[2024-02-24 07:29] LABS: Potassium* 3.1 mmol/L (3.6-5.1); Sodium* 136 mmol/L (135-149)
[2024-02-24 07:31] LABS: Alkaline Phosphatase* 77 U/L (40-150); Anion Gap 8 mEq/L (7-15); Aspartate Amino Transferase* 24 U/L (12-35); Bilirubin Direct* 0.3 mg/dL (0.0-0.5); Bilirubin Total* 0.9 mg/dL (0.1-1.5); Blood Urea Nitrogen* 8 mg/dL (7-30); Carbon Dioxide* 22 mmol/L (20-32); Creatinine* 0.6 mg/dL (0.5-1.5); Est. Creatinine Clearance* 36.08; Estimated Glomerular Filt Rate 91 ml/min; Glucose* 94 mg/dL (60-115); Lipase* 110 U/L (23-300); Total Protein* 6.7 g/dL (6.0-8.3)
[2024-02-24 07:32] LABS: Alanine Aminotransferase* 18 U/L (4-35); Calcium* 8.2 mg/dL (8.4-10.6); Gamma Glutamyl Transpeptidase* 62 U/L (8-55); Phosphorus* 2.8 mg/dL (2.5-4.5)
[2024-02-24 07:34] LABS: C Reactive Protein* 8.5 mg/dL (0.5-1.0)
--- NOTE | 2024-02-24 08:15 | P.IMPN_ITS ---
Progress Note: A&P Assessment and plan (1) Cholecystitis: Problem details: - acute, with cholelithiasis - conservative care w/o lap abhishek due to <3 months from major stroke. IV ABX until eating and moving well without pain, General Surgery also following - CRP down trending, LFTS are normal. - advancing diet as tolerated - hopefully discharge in the next 1-2 days Status: Acute (2) History of ischemic multifocal multiple vascular territories stroke: Problem details: - currently at [facility] for stroke rehab - left sided hemiparesis; plan to d/c back there vs home with when medically appropriate - on ASA 81mg daily, completed 21 day course of Plavix 01/19/24 Left arm and leg weakness due to right powell radiata stroke. Presented beyond the time frame for intravascular intervention or thrombolytics. No large vessel occlusion on MRA. No obvious atrial fibrillation though patient declined telemetry. No obvious embolic source on echo though possible PFO. Significant ongoing left hand and foot weakness. Stroke rehab at [facility]. Tx with ASA and PLAVIX. Held Plavix as of 02/20 (needed three weeks only post stroke) 05/02/2021 hospitalized for stroke involving posterior limb of the left internal capsule. Started on amlodipine, lisinopril, aspirin, and statin but patient quit shortly after starting due to side effects. Good recovery afterwards. Status: Acute (3) E-coli UTI: Problem details: - pansensitive ecoli. covered by current zosyn therapy for acute abhishek. 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 Recommend routine outpatient CT angiogram of the abdomen to adequately characterize Status: Chronic Plan - per above - ASA for ppx - given elevated temperature and + symptoms, will continue IV abx today, consider discharge tomorrow pending clinical course - updated at bedside, questions answered Subjective Date Seen: 02/24/24 Interval history: Marjan was admitted to the hospital on 02/19 for acute cholecystitis. Notably had a R-sided powell radiata posterior limb internal capsule CVA in late December with L sided deficits. She was near the end [facility] in [place] for rehab when symptoms flared. Given recent CVA, General Surgery has deferred cholecystectomy at this time; patient is tolerating IV Zosyn and low fat diet. She still has RUQ pain (abhishek vs musculoskeletal, given pain flare during therapies). Tmax 99.2 this morning, WBC, LFTS, and CRP continue to trend downward. No complaints of dysuria (pansensitive E Coli on admission U Cx). No further diarrhea (had loose stools two nights ago, these stopped prior to C- Diff collection), tolerating probiotics. Exam Narrative: Exam Narrative: GEN: Alert and oriented, sitting comfortably in bedside chair and drinking tea HEENT: Normal external ears, EOMIs bilaterally, no scleral icterus CV: RRR R: LCTA bilaterally without concerning wheezing, air movement is adequate Ab: mild discomfort with palpation in RUQ, normoactive bowel sounds Ext: wwp, no concerning edema Skin: No concerning skin lesions or rashes on exposed skin Neuro: L sided weakness, expected given recent CVA Psych: Appropriate Const: Vital Signs, click to edit/add: Vital Signs - 24 hr 02/23/24 09:27 02/23/24 09:27 02/23/24 15:28 Temperature 98.0 F 97.6 F Pulse Rate [Pulse Oximeter] 105 H 95 Respiratory Rate 16 16 16 Blood Pressure [Ri ght Arm] 145/50 H 140/45 H Pulse Oximetry 97 98 97 Oxygen Delivery Me thod Room Air Room Air Room Air 02/23/24 16:00 02/23/24 16:06 02/23/24 19:31 Temperature 97.6 F 98.8 F Pulse Rate [Pulse Oximeter] 92 86 Respiratory Rate 18 16 17 Blood Pressure [Ri ght Arm] 150/45 H 133/50 L Pulse Oximetry 97 97 93 Oxygen Delivery Me thod Room Air Room Air Room Air 02/23/24 22:01 02/23/24 22:17 02/23/24 22:18 Temperature 98.3 F Pulse Rate [Pulse Oximeter] 91 Respiratory Rate 17 17 Blood Pressure [Ri ght Arm] 136/66 Pulse Oximetry 92 93 93 Oxygen Delivery Me thod Room Air Room Air 02/24/24 04:43 Temperature 99.2 F Pulse Rate [Pulse Oximeter] 87 Respiratory Rate 16 Blood Pressure [Ri ght Arm] 160/70 H Pulse Oximetry 94 Oxygen Delivery Me thod Room Air Labs Labs: Laboratory Results - last 24 hr 02/24/24 05:45 WBC 5.13 RBC 3.79 L Hgb 10.4 L Hct 30.5 L MCV 81 MCH 27 MCHC 34 RDW Coeff of Mark 13.8 Plt Count 208 Neut % (Auto) 43.1 Lymph % (Auto) 30.2 Avery % (Auto) 25.3 H Eos % (Auto) 0.4 Baso % (Auto) 0.2 Neut # (Auto) 2.21 Lymph # (Auto) 1.55 Avery # (Auto) 1.30 H Eos # (Auto) 0.02 Baso # (Auto) 0.01 Abs Immat Gran (auto) 0.04 Imm/Tot Granulo (auto) 0.8 Sodium 136 Potassium 3.1 L Chloride 106 Carbon Dioxide 22 Anion Gap 8 BUN 8 Creatinine 0.6 Estimated Creat Clear 36.08 Estimated GFR 91 Glucose 94 Calcium 8.2 L Phosphorus 2.8 Total Bilirubin 0.9 Direct Bilirubin 0.3 GGT 62 H AST 24 ALT 18 Alkaline Phosphatase 77 C-Reactive Protein 8.5 H Total Protein 6.7 Albumin 3.7 Lipase 110
[2024-02-24] MEDS: ROSUVASTATIN CALCIUM 10 MG TABLET 40 MG PO (08:36)
[2024-02-24] MEDS: lisinopriL 20 MG TABLET 40 MG PO (08:36)
[2024-02-24] MEDS: ASPIRIN 81 MG TAB.CHEW PO (08:36)
[2024-02-24] MEDS: POTASSIUM BICARB 25 MEQ EFFERVESCENT TAB PO ×2 (08:37→11:02)
[2024-02-24] MEDS: SPIRONOLACTONE 25 MG TABLET PO (08:37)
[2024-02-24] MEDS: AMLODIPINE 10 MG TABLET PO (08:37)
[2024-02-24] MEDS: SODIUM CHLORIDE 0.9 % (FLUSH) 10 ML SYRINGE 5 ML IVF ×2 (08:37→22:29)
[2024-02-24] MEDS: LACTOBACILLUS ACIDOPHILUS 1 TABLET 1 TAB PO ×2 (08:37→17:37)
[2024-02-24] MEDS: OMEPRAZOLE 20 MG CAPSULE DR PO (11:01)
--- NOTE | 2024-02-24 19:26 | PC.NURSE ---
End of Shift: The patient is alert and oriented and pleasant with interactions. Mild pain with movement in RUQ and deep breathing. 1 stool today.. continent of bladder. Call light within reach. Micki PÉREZ BSN
[2024-02-24] MEDS: ENOXAPARIN 40 MG/0.4 ML INJ SUBCUT (22:41)
[2024-02-25 02:24] LABS: C.Difficile Negative (Negative); CDIFFEPI 027 PRESUMPTIVE NEGATIVE (Negative)
[2024-02-25 03:00] VITALS: BP 162/78; PULSE 92; RESP 16; TEMP 36.7; O2SAT 97
[2024-02-25] MEDS: PIPERACILLIN/TAZOBACTAM 3.375 GM in 0.9 % SODIUM CHLORIDE Mini-bag 100 ML IVPB ×2 (04:41→11:33)
[2024-02-25] MEDS: OMEPRAZOLE 20 MG CAPSULE DR PO (06:07)
[2024-02-25 06:47] LABS: Basophils Absolute Auto 0.02 K/uL (0.00-0.30); Basophils Percent Auto 0.4 % (0.0-3.0); Eosinophils Absolute Auto 0.05 K/uL (0.00-0.50); Hematocrit 30.4 % (33.0-51.0); Hemoglobin* 10.4 gm/dL (12.0-16.0); Immature Granulocytes Abs Auto 0.05 K/uL (0.00-0.30); Lymphocytes Absolute Auto 1.79 K/uL (0.90-2.90); Lymphocytes Percent Auto 35.9 % (20-44); Mean Corpuscular HGB Conc 34 gm/dL (32-36); Mean Corpuscular Hemoglobin 27 pg (26-34); Mean Corpuscular Volume 80 fL (80-100); Monocytes Percent Auto 22.7 % (0.0-11.0); Platelet Count* 231 K/uL (140-440); RDW Coefficient of Variation % 13.6 % (11.5-15.5); Red Blood Count 3.79 m/uL (4.00-5.20); White Blood Count* 4.98 K/uL (4.50-11.00)
[2024-02-25 06:50] LABS: Slide Review Reflex No
[2024-02-25 07:05] LABS: Albumin* 3.9 g/dL (3.3-5.0); Chloride* 105 mmol/L (96-114); Sodium* 137 mmol/L (135-149)
[2024-02-25 07:06] LABS: Iron* 48 ug/dL (37-170); Potassium* 3.5 mmol/L (3.6-5.1)
[2024-02-25 07:08] LABS: Alanine Aminotransferase* 23 U/L (4-35); Alkaline Phosphatase* 76 U/L (40-150); Anion Gap 9 mEq/L (7-15); Aspartate Amino Transferase* 31 U/L (12-35); Bilirubin Total* 0.9 mg/dL (0.1-1.5); Blood Urea Nitrogen* 6 mg/dL (7-30); Carbon Dioxide* 23 mmol/L (20-32); Creatinine* 0.7 mg/dL (0.5-1.5); Est. Creatinine Clearance* 36.08; Estimated Glomerular Filt Rate 88 ml/min
[2024-02-25 07:09] LABS: Calcium* 8.5 mg/dL (8.4-10.6); Glucose* 92 mg/dL (60-115)
[2024-02-25 07:11] LABS: C Reactive Protein* 5.8 mg/dL (0.5-1.0)
[2024-02-25 07:15] LABS: Percent Iron Saturation 21 % (20-50); Total Iron Binding Capacity 232 ug/dL (265-497)
--- NOTE | 2024-02-25 07:38 | PC.NURSE ---
Patient pleasant, alert and cooperative. Ambulating well with platform walker and?assist of one. No?reports of hallucinations. Stool sample collected for lab. Discomfort at times with movement. Denied discomfort at rest. Dressing changed to IV as was leaking. IV has been patent since that time.?
[2024-02-25] MEDS: ASPIRIN 81 MG TAB.CHEW PO (09:26)
[2024-02-25] MEDS: lisinopriL 20 MG TABLET 40 MG PO (09:26)
[2024-02-25] MEDS: AMLODIPINE 10 MG TABLET PO (09:26)
[2024-02-25] MEDS: ROSUVASTATIN CALCIUM 10 MG TABLET 40 MG PO (09:26)
[2024-02-25] MEDS: SODIUM CHLORIDE 0.9 % (FLUSH) 10 ML SYRINGE 5 ML IVF (09:26)
[2024-02-25] MEDS: SPIRONOLACTONE 25 MG TABLET PO (09:27)
[2024-02-25 09:30] VITALS: BP 159/90; PULSE 95; RESP 16; TEMP 36.6; O2SAT 95
[2024-02-25] MEDS: LACTOBACILLUS ACIDOPHILUS 1 TABLET 1 TAB PO ×2 (09:34→11:34)
--- NOTE | 2024-02-25 10:55 | PM.IMPN1 ---
Progress Note: A&P Assessment and plan (1) Cholecystitis: Problem details: - acute, with cholelithiasis - conservative care w/o lap abhishek due to <3 months from major stroke. IV ABX until eating and moving well without pain, General Surgery also following - CRP down trending, LFTS are normal. - advancing diet as tolerated - hopefully discharge in the next 1-2 days Status: Acute (2) History of ischemic multifocal multiple vascular territories stroke: Problem details: - currently at [facility] for stroke rehab - left sided hemiparesis; plan to d/c back there vs home with when medically appropriate - on ASA 81mg daily, completed 21 day course of Plavix 01/19/24 Left arm and leg weakness due to right powell radiata stroke. Presented beyond the time frame for intravascular intervention or thrombolytics. No large vessel occlusion on MRA. No obvious atrial fibrillation though patient declined telemetry. No obvious embolic source on echo though possible PFO. Significant ongoing left hand and foot weakness. Stroke rehab at [facility]. Tx with ASA and PLAVIX. Held Plavix as of 02/20 (needed three weeks only post stroke) 05/02/2021 hospitalized for stroke involving posterior limb of the left internal capsule. Started on amlodipine, lisinopril, aspirin, and statin but patient quit shortly after starting due to side effects. Good recovery afterwards. Status: Acute (3) E-coli UTI: Problem details: - pansensitive ecoli. covered by current zosyn therapy for acute abhishek. 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 Recommend routine outpatient CT angiogram of the abdomen to adequately characterize Status: Chronic Subjective Interval history: Marjan was admitted to the hospital on 02/19 for acute cholecystitis. Notably had a R-sided powell radiata posterior limb internal capsule CVA in late December with L sided deficits. She was near the end [facility] in [place] for rehab when symptoms flared. Given recent CVA, General Surgery has deferred cholecystectomy at this time; patient is tolerating IV Zosyn and low fat diet. She still has RUQ pain (abhishek vs musculoskeletal, given pain flare during therapies). Tmax 99.2 this morning, WBC, LFTS, and CRP continue to trend downward. No complaints of dysuria (pansensitive E Coli on admission U Cx). No further diarrhea (had loose stools two nights ago, these stopped prior to C-Diff collection), tolerating probiotics. Exam Const: Vital Signs, click to edit/add: Vital Signs - 24 hr 02/24/24 12:41 02/24/24 16:00 02/24/24 16:00 Temperature 98.9 F 98.6 F Pulse Rate [Pulse Oximeter] 85 100 Respiratory Rate 16 18 16 Blood Pressure [Ri ght Arm] 159/65 H 159/59 H Pulse Oximetry 97 97 97 Oxygen Delivery Me thod Room Air Room Air Room Air 02/24/24 19:00 02/24/24 22:43 02/24/24 22:43 Temperature 98.2 F Pulse Rate [Pulse Oximeter] 90 Respiratory Rate 18 20 Blood Pressure [Ri ght Arm] 130/72 Pulse Oximetry 95 99 99 Oxygen Delivery Me thod Room Air Room Air 02/24/24 22:43 02/25/24 03:00 Temperature 97.8 F 98.1 F Pulse Rate [Pulse Oximeter] 89 92 Respiratory Rate 20 16 Blood Pressure [Ri ght Arm] 144/72 H 162/78 H Pulse Oximetry 99 97 Oxygen Delivery Me thod Room Air Room Air Labs Labs: Laboratory Results - last 24 hr 02/25/24 02/25/24 02/25/24 00:50 06:08 10:03 WBC 4.98 RBC 3.79 L Hgb 10.4 L Hct 30.4 L MCV 80 MCH 27 MCHC 34 RDW Coeff of Mark 13.6 Plt Count 231 Neut % (Auto) 39.0 L Lymph % (Auto) 35.9 Knott % (Auto) 22.7 H Eos % (Auto) 1.0 Baso % (Auto) 0.4 Neut # (Auto) 1.90 Lymph # (Auto) 1.79 Knott # (Auto) 1.10 H Eos # (Auto) 0.05 Baso # (Auto) 0.02 Abs Immat Gran (auto) 0.05 Imm/Tot Granulo (auto) 1.0 Sodium 137 Potassium 3.5 L Chloride 105 Carbon Dioxide 23 Anion Gap 9 BUN 6 L Creatinine 0.7 Estimated Creat Clear 36.08 Estimated GFR 88 Glucose 92 Calcium 8.5 Iron 48 TIBC 232 L % Saturation 21 Ferritin 471.0 H Total Bilirubin 0.9 AST 31 ALT 23 Alkaline Phosphatase 76 C-Reactive Protein 5.8 H Total Protein 7.0 Albumin 3.9 Stl C. diff Tox B Gene Negative Stl C. diff [id number] PRESUMPTIVE NEGATIVE Lab Acknowledgement Test Added
[2024-02-25 11:35] VITALS: BP 150/50; PULSE 90; RESP 16; TEMP 36.6
--- NOTE | 2024-02-25 11:49 | PM.GSPN ---
Subjective Subjective Date Seen: 02/25/24 Interval history: Marjan is doing well. She states that she only has pain intermittently. She is moving her bowels. No nausea with eating. Exam Narrative: Exam Narrative: General: No acute distress Abdomen: Soft, nontender. Const: Vital Signs, click to edit/add: Vital Signs - 24 hr 02/24/24 12:41 02/24/24 16:00 02/24/24 16:00 Temperature 98.9 F 98.6 F Pulse Rate [Pulse Oximeter] 85 100 Respiratory Rate 16 18 16 Blood Pressure [Ri ght Arm] 159/65 H 159/59 H Pulse Oximetry 97 97 97 Oxygen Delivery Me thod Room Air Room Air Room Air 02/24/24 19:00 02/24/24 22:43 02/24/24 22:43 Temperature 98.2 F Pulse Rate [Pulse Oximeter] 90 Respiratory Rate 18 20 Blood Pressure [Ri ght Arm] 130/72 Pulse Oximetry 95 99 99 Oxygen Delivery Me thod Room Air Room Air 02/24/24 22:43 02/25/24 03:00 02/25/24 09:30 Temperature 97.8 F 98.1 F Pulse Rate [Pulse Oximeter] 89 92 Respiratory Rate 20 16 16 Blood Pressure [Ri ght Arm] 144/72 H 162/78 H Pulse Oximetry 99 97 95 Oxygen Delivery Me thod Room Air Room Air Room Air 02/25/24 09:30 02/25/24 11:35 Temperature 97.8 F 97.8 F Pulse Rate [Pulse Oximeter] 95 90 Respiratory Rate 16 16 Blood Pressure [Ri ght Arm] 159/90 H 150/50 H Pulse Oximetry 95 Oxygen Delivery Me thod Room Air Labs/Imaging Labs Labs: White blood cell count remains normal. CRP is trending down, now 5.8. Progress Note:A&P Assessment and plan (1) Cholecystitis: Status: Acute (2) History of ischemic multifocal multiple vascular territories stroke: Status: Acute (3) Anemia: Status: Acute (4) E-coli UTI: Status: Acute (5) Hypertension: Status: Chronic Plan The patient is a 78-year-old female with acute calculous cholecystitis in the setting of a recent ischemic stroke. She is doing well on conservative management with antibiotics. -okay to discharge back to her nursing facility today. -recommend follow-up in 2 weeks. -will need to establish care with a primary care physician. -recommend referral to Neurology. Would like guidelines on timing of cholecystectomy as patient seems to have been symptomatic for several months; increases the likelihood of recurrence. -recommended a low-fat diet to patient in the meantime. -would continue oral antibiotics for a total of 7 days of antibiotics.
--- NOTE | 2024-02-25 11:55 | PC.NURSE ---
Nurse to Nurse was given to Carlo at [facility]. The patient is to return there prior to 1300. All questions were answered. Micki PÉREZ BSN
--- NOTE | 2024-02-25 12:00 | P.DS_ITS ---
DS: Providers Provider Date Seen: 02/25/24 Date of admission: 02/20/24 23:29 Primary care physician: Not a Local Provider Admitting Clinician: Indiana Manuel MD Consults: 02/22/24 14:15 Consult to Occupational Therapy [CONS] Routine Comment: Reason(s) for OT Consult:: Evaluate and Treat Any Restrictions?:: No Restrictions Consult to Physical Therapy [CONS] Routine Comment: Reason(s) for PT Consult:: Evaluate and Treat Any Restrictions?:: No Restrictions Attending Physician on discharge: Silvina Burgess MD Date of Discharge: 02/25/24 DS: Diagnosis Discharge Diagnosis (1) Cholecystitis: Status: Acute Problem details: - acute, with cholelithiasis - conservative care w/o lap abhishek due to <3 months from major stroke. IV ABX until eating and moving well without pain, General Surgery also following - CRP down trending, LFTS are normal. - tolerating low fat diet, treated with IV Zosyn, discharging to SNF on oral Augmentin (2) History of ischemic multifocal multiple vascular territories stroke: Status: Acute Problem details: - admitted from [facility] (had been there for stroke rehab) - left sided hemiparesis; discharging back there for therapy on 02/25/24 - on ASA 81mg daily, completed 21 day course of Plavix 01/19/24 Left arm and leg weakness due to right powell radiata stroke. Presented beyond the time frame for intravascular intervention or thrombolytics. No large vessel occlusion on MRA. No obvious atrial fibrillation though patient declined telemetry. No obvious embolic source on echo though possible PFO. Significant ongoing left hand and foot weakness. Stroke rehab at SNF. Tx with ASA and PLAVIX. Held Plavix as of 02/20 (needed three weeks only post stroke) 05/02/2021 hospitalized for stroke involving posterior limb of the left internal capsule. Started on amlodipine, lisinopril, aspirin, and statin but patient quit shortly after starting due to side effects. Good recovery afterwards. (3) Anemia: Status: Acute Problem details: - normocytic, noted during stay (Hgb 10-11, previous outpatient baseline 14) - stable at 10.2 upon discharge - no evidence of GI bleed, normal BUN (4) E-coli UTI: Status: Acute Problem details: - pansensitive ecoli. covered by current zosyn therapy for acute abhishek, discharging on oral Augmentin (5) Hypertension: Status: Chronic Problem details: - Lisinopril, Amlodipine, Spironolactone - has previously had an evaluation for hyper aldosteronism which was unremarkable (6) Breast nodule: Status: Acute Problem details: OUTPATIENT FOLLOW-UP - 02/20/24 CT abd/pelvis: 12 millimeter asymmetric soft tissue density within the left retroareolar breast is nonspecific, with differential diagnosis to include malignancy - patient and aware of finding and will f/u with PCP, Marjan hasn't had a mammogram in 30ish years (7) Renal artery stenosis: Status: Acute Problem details: OUTPATIENT FOLLOW UP 02/20/24 CT abd/pelvis: Stenosis at the origin of the right renal artery. Recommend routine outpatient CT angiogram of the abdomen to adequately characterize. DS: Summary Hospital Course Hospital Course: Marjan Urbina is a 78 year old female who presented to the hospital on 02/19 for right upper quadrant abdominal pain. She was diagnosed with cholecystitis; general surgery consulted and cholecystectomy ultimately deferred given patient's recent CVA (late December, had been at [facility] for rehab prior to ER visit). She was treated conservatively with IV Zosyn and low-fat diet; LFTs trended downward and symptoms improved. Discharging on a course of oral Augmentin. Followed by therapies given recent CVA; remains appropriate for further rehab and was medically appropriate for discharge back to [facility] on 02/25/24. Other notable findings during stay above. She will stab list care locally after her rehab stay for the above mentioned findings, and to discuss follow-up with General surgery and Neurology. Status at Discharge Functional status at discharge: uses cane/walker Overall status at discharge: patient is progressing back to baseline Time Spent with Patient Time attestation: Total time spent providing and/or coordinating discharge services: Time spent: Greater than 30 minutes Specific discharge activities: Updates to patient and , medication reconciliation Exam Narrative: Exam Narrative: GEN: Alert and oriented, answering questions appropriately HEENT: EOMIs bilaterally, no scleral icterus CV: RRR, No concerning murmurs R: LCTA bilaterally without concerning wheezing, air movement adequate Ext: wwp, no concerning edema Skin: No concerning skin lesions or rashes on exposed skin Neuro: Left-sided weakness from recent CVA Psych: Appropriate Const: Vital Signs, click to edit/add: Vital Signs - 24 hr 02/24/24 12:41 02/24/24 16:00 02/24/24 16:00 Temperature 98.9 F 98.6 F Pulse Rate [Pulse Oximeter] 85 100 Respiratory Rate 16 18 16 Blood Pressure [Ri ght Arm] 159/65 H 159/59 H Pulse Oximetry 97 97 97 Oxygen Delivery Me thod Room Air Room Air Room Air 02/24/24 19:00 02/24/24 22:43 02/24/24 22:43 Temperature 98.2 F Pulse Rate [Pulse Oximeter] 90 Respiratory Rate 18 20 Blood Pressure [Ri ght Arm] 130/72 Pulse Oximetry 95 99 99 Oxygen Delivery Me thod Room Air Room Air 02/24/24 22:43 02/25/24 03:00 02/25/24 09:30 Temperature 97.8 F 98.1 F Pulse Rate [Pulse Oximeter] 89 92 Respiratory Rate 20 16 16 Blood Pressure [Ri ght Arm] 144/72 H 162/78 H Pulse Oximetry 99 97 95 Oxygen Delivery Me thod Room Air Room Air Room Air 02/25/24 09:30 02/25/24 11:35 Temperature 97.8 F 97.8 F Pulse Rate [Pulse Oximeter] 95 90 Respiratory Rate 16 16 Blood Pressure [Ri ght Arm] 159/90 H 150/50 H Pulse Oximetry 95 Oxygen Delivery Me thod Room Air DS: Data Data Completed and Pending Labs on day of discharge: Labs from last 24 hours 02/25/24 02/25/24 02/25/24 10:03 06:08 00:50 WBC 4.98 RBC 3.79 L Hgb 10.4 L Hct 30.4 L MCV 80 MCH 27 MCHC 34 RDW Coeff of Mark 13.6 Plt Count 231 Neut % (Auto) 39.0 L Lymph % (Auto) 35.9 [place] % (Auto) 22.7 H Eos % (Auto) 1.0 Baso % (Auto) 0.4 Neut # (Auto) 1.90 Lymph # (Auto) 1.79 [place] # (Auto) 1.10 H Eos # (Auto) 0.05 Baso # (Auto) 0.02 Abs Immat Gran (auto) 0.05 Imm/Tot Granulo (auto) 1.0 Sodium 137 Potassium 3.5 L Chloride 105 Carbon Dioxide 23 Anion Gap 9 BUN 6 L Creatinine 0.7 Estimated Creat Clear 36.08 Estimated GFR 88 Glucose 92 Calcium 8.5 Iron 48 TIBC 232 L % Saturation 21 Ferritin 471.0 H Total Bilirubin 0.9 AST 31 ALT 23 Alkaline Phosphatase 76 C-Reactive Protein 5.8 H Total Protein 7.0 Albumin 3.9 TSH 2.310 Stl C. diff Tox B Gene Negative Stl C. diff [id number] PRESUMPTIVE NEGATIVE Lab Acknowledgement Test Added Discharge Plan Discharge Disposition: er [facility] Date of Admission: 02/20/24 23:29 Attending Provider on Discharge: Silvina Burgess Primary Care Provider: Provider,Not a Local Condition: Unchanged Anticipated Discharge Date/Time: 02/25/24 11:45 Discharge Medications: New oxycodone 5 mg Tablet 5 mg PO Q4H PRNQty: 20 0RF amoxicillin-pot clavulanate 875-125 mg tablet 1 tab PO BID 5 Days Qty: 10 0RF Continued oxycodone 5 mg tablet 5 mg PO Q4H PRN (Reason: pain) cyclobenzaprine 5 mg tablet PO amlodipine 10 mg tablet 10 mg PO DAILY lisinopril 40 mg tablet 40 mg PO DAILY baclofen 5 mg tablet 5 mg PO 3XD PRN (Reason: muscle spasm) aspirin [Children's Aspirin] 81 mg Tablet,Chewable 81 mg PO DAILY Qty: 100 0RF rosuvastatin 40 mg tablet 40 mg PO DAILY Qty: 30 0RF spironolactone 25 mg tablet 25 mg PO DAILY Qty: 30 0RF Discontinued clopidogrel 75 mg Tablet 75 mg PO DAILY Qty: 20 0RF Discharge Orders: Discharge Order (Routine); Ordered 02/25/24 Ordered By: Silvina Burgess Additional Instructions: - Continue antibiotics (sent to pharmacy) for another week - STOP Plavix, continue aspirin - Before leaving [place], call the [facility] and make an appt with either Dr. Carol Adorno or Dr. Bruno Summers (they will help followup on your incidentally noted breast nodule and help with Neurology referral and General Surgery f/u - when you see Neurology in follow up of your stroke, they will help you decide when it's best to have your gallbladder out Discharge Diet: Low Fat/Low Cholesterol Follow Up Appointments: Marti Chamorro MD [Staff Physician] - (follow up 2 weeks after discharge) Provider,Not a Local [Primary Care Provider] - Forms: UXPin Instructions Admit to: SNF Discharge Potential: Good Length of Stay: <30 days Can use facility standing orders?: Yes Code Status: DNR/DNI Rehab Potential: Good Therapy: Physical Therapy and Occupational Therapy Therapy Orders: Evaluate and Treat Therapy Orders Additional Information: CVA Oxygen: No Urinary Catheter: No Glucose Checks: n/a Next INR: n/a Orders are good >30 days: Yes Signature: Silvina Burgess MD
--- NOTE | 2024-02-25 13:12 | PC.NURSE ---
Discharge Note: The patient discharged back to [facility] with her via private vehicle. All belongings were sent with the patient. The patient reported no pain this morning. Loose stools have decreased per patient statement. L arm weakness/ataxia.. The patient does well with Ax1 w/ the platform walker. Discharge information was faxed to [place]. Micki PÉREZ BSN
== END 2024-02-25 12:30 | DRG 445 ==
LOC: ED 20:28 → MEDSURG 20:51
PROVIDERS: Family Medicine; Admitting Provider Family Medicine; Emergency Provider Family Medicine; Visit Provider Family Medicine
DX: K80.00 Calculus of gallbladder with acute cholecystitis without obstruction (principal); I69.354 Hemiplegia and hemiparesis following cerebral infarction affecting left non-dominant side; N39.0 Urinary tract infection, site not specified; B96.20 Unspecified Escherichia coli [E. coli] as the cause of diseases classified elsewhere; M62.838 Other muscle spasm; M62.831 Muscle spasm of calf; I10 Essential (primary) hypertension; I70.1 Atherosclerosis of renal artery; D64.9 Anemia, unspecified; I69.392 Facial weakness following cerebral infarction; E03.9 Hypothyroidism, unspecified; E78.2 Mixed hyperlipidemia; N63.20 Unspecified lump in the left breast, unspecified quadrant
CPT/HCPCS: 36415; 74177; 76705; 80048; 80053; 80069; 80076; 81001; 82330; 82728; 82803; 82977; 83540; 83550; 83605; 83690; 84443; 84484; 85025; 85027; 86140; 87086; 87186; 87493; 93005; 97110; 97116; 97162; 97165; 97530; 97535; 99284; 99285; A9270; J1170; J1650; J2405; J2543; J7030; J7120; Q9967

== ENCOUNTER 2024-03-06 09:40 | Outpatient (CLI) | payer OTHER, SELFPAY | END 2024-03-06 09:41 | disposition home or self-care (01) | PROVIDERS: Visit Provider Surgery | DX: K80.00 Calculus of gallbladder with acute cholecystitis without obstruction (principal); R10.11 Right upper quadrant pain | CPT/HCPCS: 80076; 86140 ==

== ENCOUNTER 2024-03-16 03:14 | Emergency (ER) | payer OTHER, SELFPAY ==
--- NOTE | 2024-03-16 03:23 | ED_ITS ---
HPI - General Adult General Chief complaint: Abdominal Pain Stated complaint: wants to get her gallbladder check out again Time Seen by Provider: 03/16/24 03:22 History of Present Illness HPI narrative: Patient is a 78-year-old woman who has a known history of cholecystitis. She was not offered cholecystectomy earlier in the month as she had a stroke less than 3 months ago. Patient has been doing well eating and drinking normally been started have some occasional crampy abdominal pain which is in the epigastrium. Patient is worried that her gallbladder attacks are coming back. It is now 3:00 a.m. and her symptoms have resolved. She would just like some blood tests to confirm that she is feeling better. She has had no change in her bowel or bladder no reflux symptoms no chest pain no shortness of breath and has no further abdominal pain. Related Data Home Medications ?Medication ?Instructions ?Recorded ?Confirmed cyclobenzaprine 5 mg tablet mg PO 02/20/24 oxycodone 5 mg tablet 5 mg PO Q4H PRN pain 02/20/24 02/20/24 amlodipine 10 mg tablet 10 mg PO DAILY 02/21/24 02/21/24 baclofen 5 mg tablet 5 mg PO 3XD PRN muscle spasm 02/21/24 02/21/24 lisinopril 40 mg tablet 40 mg PO DAILY 02/21/24 02/21/24 Previous Rx's ?Medication ?Instructions ?Recorded aspirin 81 mg chewable tablet 81 mg PO DAILY #100 tabs 01/23/24 (Children's Aspirin) rosuvastatin 40 mg tablet 40 mg PO DAILY #30 tabs 01/23/24 spironolactone 25 mg tablet 25 mg PO DAILY #30 tabs 01/24/24 oxycodone 5 mg tablet 5 mg PO Q4H PRN #20 tabs 02/25/24 ciprofloxacin HCl 500 mg tablet 500 mg PO BID #14 tabs 03/06/24 (Cipro) lactobacillus combination no.9 4 4,000 mmu cells PO QDAY #30 caps 03/06/24 billion cell capsule (Adult 50 Plus Probiotic) metronidazole 500 mg tablet 500 mg PO BID #14 tabs 03/06/24 Allergies Allergy/AdvReac Type Severity Reaction Status Date / Time chocolate Allergy Mild Diarrhea Verified 03/06/24 09:24 corn AdvReac Mild Diarrhea Verified 03/06/24 09:24 Review of Systems Status of ROS: Reports: 10 or more systems reviewed and unremarkable except as noted in History and below [facility] Medical History Cholecystitis (02/20/24) ?K81.9 - Cholecystitis, unspecified (ICD-10) Anxiety ?F41.9 - Anxiety disorder, unspecified (ICD-10) Anemia ?D64.9 - Anemia, unspecified (ICD-10) History of ischemic multifocal multiple vascular territories stroke (05/03/21) ?Z86.73 - Personal history of transient ischemic attack (TIA), and cerebral infarction without residual deficits (ICD-10) Renal artery stenosis ?I70.1 - Atherosclerosis of renal artery (ICD-10) Breast nodule ?N63.0 - Unspecified lump in unspecified breast (ICD-10) Muscle spasm ?M62.838 - Other muscle spasm (ICD-10) Noncompliance with medication regimen ?Z91.148 - Patient's other noncompliance with medication regimen for other reason (ICD-10) Hypertension ?I10 - Essential (primary) hypertension (ICD-10) Mixed hyperlipidemia ?E78.2 - Mixed hyperlipidemia (ICD-10) Colon cancer screening declined ?Z53.20 - Procedure and treatment not carried out because of patient's decision for unspecified reasons (ICD-10) Vaccination declined ?Z28.21 - Immunization not carried out because of patient refusal (ICD-10) Electrocution ?T75.4XXA - Electrocution, initial encounter (ICD-10) Hypothyroidism ?E03.9 - Hypothyroidism, unspecified (ICD-10) Surgical History H/O bilateral oophorectomy (~1988) ?Z90.722 - Acquired absence of ovaries, bilateral (ICD-10) H/O hysterectomy for benign disease (~1976) ?Z90.710 - Acquired absence of both cervix and uterus (ICD-10) Hx of tonsillectomy ?Z90.89 - Acquired absence of other organs (ICD-10) Family History Brother Alcohol dependence Drug dependence Brother Diabetes Father Myocardial infarction High blood pressure Paternal Grandfather Myocardial infarction Mother High blood pressure Sister High blood pressure Maternal Grandmother Leukemia Social History Narrative: , lives independently with , Fabricio; has been at [facility] and now assisted living recently due to stroke. 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 She has a sister and several adult children who live in the area. Denies tobacco use, quit smoking at age 30. Drinks 1 glass of wine 5 nights a week, no other alcohol use. Denies recreational drug use. Patient desires to be DNR/DNI. What is your current living situation?: I presently have a place to live Problems where you live: no known problems Problems where you live details: N/A In the past 12 months, utilities in danger of being shut off: no In past 12 months, lack of transportation kept you from medical appts, meetings, work, or getting things needed for daily living: no In the past 12 mos, have been you worried that your food would run out before you had money to buy more?: never true In the past 12 mos, the food you bought just didn't last and you didn't have money to buy more?: never true Highest level of school completed/degree received: some college, no degree Smoking Status: Former smoker What tobacco products do you use: cigarettes Smoking quit date/years: >15 years ago Do you use any of these nicotine containing products: None Second hand tobacco smoke exposure: No How often do you have a drink containing alcohol: 4 or more times a week [place] type: beer and wine Alcohol type details: 1 beer/wine 5x/week with meals How many standard drinks containing alcohol do you have on a typical day: 1 or 2 How often do you have six or more drinks on one occasion: Never AUDIT-C Alcohol total score: 4 Non-prescribed substance use: denies use Caffeine: Yes (2-3 cups of coffee/day) How often does anyone, including family, friends and others, physically hurt you : never How often does anyone, including family, friends and others, insult or talk down to you: never How often does anyone, including family, friends and others, threaten you with harm: never How often does anyone, including family, friends and others, scream or curse at you: never service: No Exam Narrative: Exam Narrative: EXAM GENERAL: Patient appears comfortable and well. EYES: No scleral icterus. LYMPH: No supraclavicular or cervical lymphadenopathy. SKIN: Visible skin seen during exam normal or with benign process only. EXT: No dependent lower extremity pedal edema. HEART: Regular rate and rhythm with no murmurs, rubs, or gallops. LUNGS: Clear to auscultation bilaterally with no crackles or wheezes. ABD: Soft, non tender, non distended. PSYCH: Good eye contact, speech is not pressured. Const: Vital Signs, click to edit/add: Vital Signs - 24 hr 03/16/24 03:24 Temperature 97.6 F Pulse Rate [Pulse Oximeter] 107 H Respiratory Rate 16 Blood Pressure [Ri ght Upper Arm] 165/86 H Pulse Oximetry 95 Oxygen Delivery Me thod Room Air Course Course ED Course: Patient seen and examined. Will proceed with CMP CBC. Vital Signs Vital signs: Initial Vital Signs Temperature 97.6 F 03/16/24 03:24 Temperature Source Temporal Artery Scan 03/16/24 03:24 Pulse Rate 107 H 03/16/24 03:24 Respiratory Rate 16 03/16/24 03:24 Blood Pressure 165/86 H 03/16/24 03:24 Blood Pressure Mean 112 H 03/16/24 03:24 Blood Pressure Position Sitting 03/16/24 03:24 Pulse Oximetry 95 03/16/24 03:24 Oxygen Delivery Method Room Air 03/16/24 03:24 Vital Signs Temperature 97.6 F 03/16/24 03:24 Pulse Rate 107 H 03/16/24 03:24 Respiratory Rate 16 03/16/24 03:24 Blood Pressure 165/86 H 03/16/24 03:24 Pulse Oximetry 95 03/16/24 03:24 Oxygen Delivery Method Room Air 03/16/24 03:24 Temperature 97.6 F 03/16/24 03:24 Pulse Rate 107 H 03/16/24 03:24 Respiratory Rate 16 03/16/24 03:24 Blood Pressure 165/86 H 03/16/24 03:24 Pulse Oximetry 95 03/16/24 03:24 Oxygen Delivery Method Room Air 03/16/24 03:24 Medical Decision Making [facility] Narrative Medical decision making narrative: Patient presents with intermittent right upper quadrant pain which really is not a change for her. Is known history of cholecystitis and we are awaiting her to get a safe distance from a time standpoint from her CVA so she can safely have a cholecystectomy. She comes in tonight with minimal symptoms but mostly anxiety. His normal exam in reasonable vital signs. Her labs are reassuring. At this time I did ask her to continue low fat diet ibuprofen ice warm compresses and follow-up with her primary physician. Lab Data Labs: Lab Results 03/16/24 Range/Units 03:35 WBC 6.87 (4.50-11.00) K/uL RBC 4.33 (4.00-5.20) m/uL Hgb 11.7 L (12.0-16.0) gm/dL Hct 35.2 (33.0-51.0) % MCV 81 (80-100) fL MCH 27 (26-34) pg MCHC 33 (32-36) gm/dL RDW Coeff of Mark 13.5 (11.5-15.5) % Plt Count 258 (140-440) K/uL Neut % (Auto) 43.1 (42.0-72.0) % Lymph % (Auto) 33.2 (20-44) % [place] % (Auto) 22.9 H (0.0-11.0) % Eos % (Auto) 0.4 (0.0-7.0) % Baso % (Auto) 0.0 (0.0-3.0) % Neut # (Auto) 2.96 (1.7-7.0) K/uL Lymph # (Auto) 2.28 (0.90-2.90) K/uL [place] # (Auto) 1.60 H (0.00-0.90) K/UL Eos # (Auto) 0.03 (0.00-0.50) K/uL Baso # (Auto) 0.00 (0.00-0.30) K/uL Abs Immat Gran (auto) 0.03 (0.00-0.30) K/uL Imm/Tot Granulo (auto) 0.4 % Discharge Plan Discharge Clinical Impression: Cholecystitis Patient Disposition: Home, Self-Care Condition: Stable Instructions: Cholecystitis (ED) Additional Instructions: Continue low-fat diet and pain control as previous Continue current medications Contact your surgeon this week Activity Level: No Restrictions Discharge Diet: Regular Prescriptions: No Action ciprofloxacin HCl [Cipro] 500 mg tablet 500 mg PO BID Qty: 14 0RF metronidazole 500 mg tablet 500 mg PO BID Qty: 14 0RF Adult 50 Plus Probiotic 4 billion cell capsule 4,000 mmu cells PO QDAY Qty: 30 0RF Rx Instructions: administer with a meal oxycodone 5 mg tablet 5 mg PO Q4H PRN (Reason: pain) cyclobenzaprine 5 mg tablet PO amlodipine 10 mg tablet 10 mg PO DAILY lisinopril 40 mg tablet 40 mg PO DAILY baclofen 5 mg tablet 5 mg PO 3XD PRN (Reason: muscle spasm) oxycodone 5 mg Tablet 5 mg PO Q4H PRNQty: 20 0RF aspirin [Children's Aspirin] 81 mg Tablet,Chewable 81 mg PO DAILY Qty: 100 0RF rosuvastatin 40 mg tablet 40 mg PO DAILY Qty: 30 0RF spironolactone 25 mg tablet 25 mg PO DAILY Qty: 30 0RF Follow Up/Referrals: Provider,Not a Local [Primary Care Provider] - Stand Alone Forms: MyHealth Info Instructions
[2024-03-16 03:24] VITALS: BP 165/86; PULSE 107; RESP 16; TEMP 36.4; O2SAT 95; BMI 23.8
[2024-03-16 03:40] LABS: Eosinophils Absolute Auto 0.03 K/uL (0.00-0.50); Eosinophils Percent Auto 0.4 % (0.0-7.0); Hematocrit 35.2 % (33.0-51.0); Hemoglobin* 11.7 gm/dL (12.0-16.0); Immature Granulocytes Abs Auto 0.03 K/uL (0.00-0.30); Immature Granulocytes Pct Auto 0.4 %; Lymphocytes Absolute Auto 2.28 K/uL (0.90-2.90); Lymphocytes Percent Auto 33.2 % (20-44); Mean Corpuscular HGB Conc 33 gm/dL (32-36); Mean Corpuscular Hemoglobin 27 pg (26-34); Mean Corpuscular Volume 81 fL (80-100); Monocytes Percent Auto 22.9 % (0.0-11.0); Neutrophils Absolute Auto 2.96 K/uL (1.7-7.0); Neutrophils Percent Auto 43.1 % (42.0-72.0); Platelet Count* 258 K/uL (140-440); RDW Coefficient of Variation % 13.5 % (11.5-15.5); Red Blood Count 4.33 m/uL (4.00-5.20); White Blood Count* 6.87 K/uL (4.50-11.00)
[2024-03-16 03:43] LABS: Slide Review Reflex No
[2024-03-16 03:53] LABS: Albumin* 4.6 g/dL (3.3-5.0); Chloride* 101 mmol/L (96-114); Potassium* 4.2 mmol/L (3.6-5.1); Sodium* 136 mmol/L (135-149)
[2024-03-16 03:55] LABS: Creatinine* 0.8 mg/dL (0.5-1.5); Est. Creatinine Clearance* 36.08; Estimated Glomerular Filt Rate 75 ml/min
[2024-03-16 03:56] LABS: Alanine Aminotransferase* 21 U/L (4-35); Alkaline Phosphatase* 80 U/L (40-150); Anion Gap 12 mEq/L (7-15); Aspartate Amino Transferase* 26 U/L (12-35); Blood Urea Nitrogen* 14 mg/dL (7-30); Calcium* 9.6 mg/dL (8.4-10.6); Carbon Dioxide* 23 mmol/L (20-32); Glucose* 137 mg/dL (60-115); Total Protein* 7.7 g/dL (6.0-8.3)
== END 2024-03-16 04:18 | disposition home or self-care (01) ==
PROVIDERS: Emergency Provider Internal Medicine
DX: K81.9 Cholecystitis, unspecified (principal)
CPT/HCPCS: 36415; 80053; 85025; 99283

== ENCOUNTER 2024-03-20 14:13 | Outpatient (CLI) | payer OTHER, SELFPAY | END 2024-03-20 14:14 | disposition home or self-care (01) | PROVIDERS: Visit Provider Family Medicine | DX: Z00.00 Encounter for general adult medical examination without abnormal findings (principal); I10 Essential (primary) hypertension; E03.9 Hypothyroidism, unspecified; E78.2 Mixed hyperlipidemia | CPT/HCPCS: 80053; 80061 ==

== ENCOUNTER 2024-04-08 10:12 | Outpatient (CLI) | payer OTHER, SELFPAY ==
--- NOTE | 2024-04-08 10:45 | CRLHL7_ITS ---
For Patients: As a result of the Cures Act, medical imaging exams and procedure reports are released immediately into your electronic medical record. You may view this report before your referring provider. If you have questions, please contact your health care provider. DIGITAL DIAGNOSTIC BILATERAL MAMMOGRAM USING TOMOSYNTHESIS AND COMPUTER-AIDED DETECTION LEFT BREAST ULTRASOUND CLINICAL HISTORY: LEFT breast asymmetric density on recent CT. COMPARISON: CT abdomen and pelvis 02/20/2024. TECHNIQUE: Digital BILATERAL mammogram in four projections with computer-aided detection. Tomosynthesis was used in this interpretation. Real-time ultrasound imaging of LEFT breast with imaging documentation. BREAST COMPOSITION: There are areas of scattered fibroglandular density. FINDINGS: 3D CC/MLO BILATERAL mammogram images submitted. No suspicious mass or architectural distortion. Benign calcifications. No adenopathy. Targeted LEFT breast ultrasound performed at 1 o`clock 5 cm from the nipple corresponding to the area on CT. Normal fibroglandular tissue is present. No fibrocystic change or mass. IMPRESSION: Normal fibroglandular tissue. No suspicious findings. RECOMMENDATIONS: Annual BILATERAL screening mammography. Results and recommendations discussed with the patient. BI-RADS Category 2: Benign A lay language report of this examination will be provided to the patient. Dictated by Rusty Epps MD @ 04/08/2024 12:05:45 PM jj/Dictated by: Rusty Epps MD @ 04/08/2024 12:06:00 PM (Electronically Signed)
--- NOTE | 2024-04-08 11:15 | CRLHL7_ITS ---
For Patients: As a result of the Cures Act, medical imaging exams and procedure reports are released immediately into your electronic medical record. You may view this report before your referring provider. If you have questions, please contact your health care provider. PLEASE SEE DIGITAL DIAGNOSTIC BILATERAL MAMMOGRAM PERFORMED SAME DAY CRL:[email or web address]/Dictated by: Rusty Epps MD @ 04/08/2024 12:06:00 PM (Electronically Signed)
== END 2024-04-08 10:13 | disposition home or self-care (01) ==
LOC: MAMMO 10:12
PROVIDERS: PCP Family Medicine; Visit Provider Family Medicine
DX: N63.21 Unspecified lump in the left breast, upper outer quadrant (principal)
CPT/HCPCS: 76642; 77066; G0279